=== PATIENT | female | born 1960 | race Caucasian/White ===

== ENCOUNTER 2023-06-13 11:19 | Inpatient (IN) | payer MEDICARE, SELFPAY ==
[2023-06-13] VITALS (8 sets, daily range): BP systolic 148–193; BP diastolic 68–97; PULSE 60–77; RESP 16–22; TEMP 36.1–36.8; O2SAT 97–99
--- NOTE | ~2023-06-13 | CT_ITS ---
EXAMINATION: CT brain wo con DATE: 06/13/2023 11:53 INDICATION: Cerebrovascular accident. TECHNIQUE: Computed tomography (CT) of the head was performed without intravenous contrast. The mA wa s adjusted according to patient size. Iterative reconstruction technique was employed. The dose-lengt h product was 605.33 mGy-cm. COMPARISON: None FINDINGS: There is no intracranial hemorrhage, acute infarction, or abnormal intracranial mass lesion . There are scattered areas of low attenuation in the cerebral white matter, which is within normal l imits for the patient's age. The ventricles are normal in size. The orbits are normal. There is near complete opacification of sphenoid sinus with sclerosis of the sinus lopes, consistent with chronic s inusitis. The mastoid air cells are normal. IMPRESSION: 1. Normal aging brain. I called this result to Dr. Booker. 2. Chronic sinusitis. Reviewed, dictated and finalized at location A. R MAKER DYER
--- NOTE | ~2023-06-13 | CT_ITS ---
EXAMINATION: CT brain wo con DATE: 06/13/2023 18:32 INDICATION: worsening cva symptoms . TECHNIQUE: Computed tomography (CT) of the head was performed without intravenous contrast. The mA wa s adjusted according to patient size. Iterative reconstruction technique was employed. The dose-lengt h product was 605.33 mGy-cm. COMPARISON: CT brain, CTA brain carotid same date. FINDINGS: No acute intracranial hemorrhage or extra-axial fluid collection. No hydrocephalus, mass, or herniation. No acute ischemic infarct. Unremarkable dural venous sinus attenuation. No acute osseous abnormality. Near complete opacification of the left sphenoid sinus, with air-fluid level and surrounding sclerosi s. Hypoplastic right sphenoid sinus. The remaining aerated spaces are aerated spaces are clear. Mild atrophy and chronic white matter change. Atherosclerotic intracranial calcification. IMPRESSION: No acute intracranial process. Reviewed, dictated and finalized at location K. RLY COMPANION
--- NOTE | ~2023-06-13 | XR_ITS ---
EXAMINATION: XR chest 1V portable DATE: 06/13/2023 12:32 INDICATION: Left hemiparesis. TECHNIQUE: A single frontal view of the chest was obtained. COMPARISON: None. FINDINGS: There is mild atelectasis in right lower lung zone. No pleural effusion or pneumothorax. Th e heart size is normal. There is a total right shoulder arthroplasty. There are screws in proximal le ft humerus. IMPRESSION: 1. Mild atelectasis in right lower lung zone. Reviewed, dictated and finalized at location A. WORKER PILE DRIVING
--- NOTE | ~2023-06-13 | MR_ITS ---
EXAMINATION: MR brain/brain stem wo/w con DATE: 06/14/2023 08:55 INDICATION: Left hemiparesis. TECHNIQUE: Magnetic resonance imaging (MRI) of the brain and brainstem was performed without and with 19 mL MultiHance intravenous contrast. COMPARISON: Head CT 06/13/2023 FINDINGS: There is an acute infarct in the right thalamus. There are scattered areas of nonspecific i ncreased T2-weighted signal intensity in the cerebral white matter and darryn. There is no intracranial hemorrhage or abnormal mass lesion. The ventricles are normal in size. There is mucosal thickening i n the paranasal sinuses. The orbits are normal. The mastoid air cells are normal. IMPRESSION: 1. Acute infarct in right thalamus. 2. Mild nonspecific cerebral white matter disease and pontine disease, which likely represents chroni c small vessel ischemic disease. Reviewed, dictated and finalized at location A. E JUMPER SUPERVISOR IMPRESSION: 1. Acute infarct in right thalamus. 2. Mild nonspecific cerebral white matter disease and pontine disease, which [place] represents chronic small vessel ischemic disease.
--- NOTE | ~2023-06-13 | CT_ITS ---
EXAMINATION: CTA brain carotid DATE: 06/13/2023 12:10 INDICATION: Cerebrovascular accident. Left-sided numbness. TECHNIQUE: Computed tomographic angiography (CTA) of the head was performed with 100 mL Omnipaque-350 intravenous contrast. CTA of the neck was performed with intravenous contrast. Automated exposure co ntrol and iterative reconstruction technique were employed. The dose-length product was 1128.75 mGy-c m. Maximum intensity projection and volume rendered 3D-reconstructions were created by the technologi st on a separate workstation. COMPARISON: Head CT 06/13/2023 FINDINGS: HEAD CTA: There are scattered areas of low attenuation in the cerebral white matter, which is within normal limits for the patient's age. There is no intracranial hemorrhage, acute infarction, or abnorm al intracranial mass lesion. The ventricles are normal in size. There is near complete opacification of sphenoid sinus with sclerosis of the sinus lopes, consistent with chronic sinusitis. The orbits ar e normal. The mastoid air cells are normal. The vertebral arteries are codominant. There is no signif icant stenosis of basilar artery or the posterior cerebral arteries. The posterior communicating alessandra beba are normal. There is no significant stenosis of intracranial internal carotid arteries or anteri or or middle cerebral arteries. Anterior communicating artery is normal. There is no aneurysm. NECK CTA: The lungs demonstrate mild atelectasis. There are no pathologically enlarged lymph nodes. T here is no significant stenosis of the vertebral arteries. There is no visible plaque in the proximal internal carotid arteries. There is 0% stenosis of the proximal right internal carotid artery relati ve to normal distal artery lumen diameter (NASCET criteria). There is 0% stenosis of the proximal lef t internal carotid artery relative to normal distal artery lumen diameter. There is moderate cervical spondylosis. IMPRESSION: 1. Normal aging brain. 2. No aneurysm or significant intracranial internal stenosis. 3. 0% stenosis of the proximal internal carotid arteries relative to normal distal artery lumen diame ters (NASCET criteria). Reviewed, dictated and finalized at location A. K HELPER IMPRESSION: 1. Normal aging brain. 2. No aneurysm or significant intracranial internal stenosis. 3. 0% stenosis of the proximal internal carotid arteries relative to normal dis felicia artery lumen diameters (NASCET criteria).
--- NOTE | 2023-06-13 11:44 | ECG_ITS ---
Measurements Intervals Okay Rate: 68 P: 22 [place]: 175 QRS: 14 QRSD: 72 T: 30 QT: 385 QTc: 411 Interpretive Statements SINUS RHYTHM LOW QRS VOLTAGE IN PRECORDIAL LEADS BASELINE ARTIFACT- I, II, III, AVR, AVL BORDERLINE ECG NO PREVIOUS ECG AVAILABLE FOR COMPARISON Electronically Signed On 06-13-2023 12:40:27 FIRMWARE MANAGER by Justen Jeter D.O.
[2023-06-13 11:47] LABS: Glucose Point of Care 175 mg/dl (65-105)
[2023-06-13 11:51] LABS: Basophils Absolute Auto 0.1 K/mm3 (0.0-0.1); Basophils Percent Auto 1.3 % (0.2-1.2); Eosinophils Absolute Auto 0.1 K/mm3 (0-0.3); Eosinophils Percent Auto 1.4 % (0-4.4); Hematocrit 44.1 % (37.0-47.0); Hemoglobin 14.2 g/dL (12.0-15.0); Immature Granulocyte Absolute 0.04 K/mm3 (0.00-0.031); Immature Granulocyte Percent A 0.7 % (0-0.5); Lymphocytes Absolute Auto 1.35 K/mm3 (0.9-3.2); Lymphocytes Percent Auto 24.3 % (18.3-44.2); Mean Corpuscular HGB Conc 32.2 g/dl (32-36); Mean Corpuscular Hemoglobin 29.4 pg (26-34); Mean Corpuscular Volume 91.3 fl (80-100); Mean Platelet Volume 9.6 fl (7.4-10.4); Monocytes Absolute Auto 0.4 K/mm3 (0.1-0.6); Monocytes Percent Auto 6.5 % (2.6-8.5); Neutrophils Absolute Auto 3.7 K/mm3 (1.3-6.7); Neutrophils Percent Auto 65.8 % (45.5-73.1); Platelet Count Result 166 k/mm3 (150-375); Red Blood Count 4.83 M/mm3 (4.2-5.4); Red Cell Distribution Width 13.6 % (11.5-14.5); White Blood Count 5.6 K/mm3 (4.5-10.0)
[2023-06-13 11:59] LABS: Estimated Glomerular Filt Rate > 60
[2023-06-13 12:01] LABS: INR 0.9; Prothrombin Time 12.6 Seconds (11.1-14.7)
[2023-06-13 12:02] LABS: Alanine Aminotransferase 29 U/L (6-35); Albumin Level 3.9 g/dL (3.5-5.1); Alkaline Phosphatase 67 U/L (38-126); Anion Gap 8 mmol/L (8-16); Aspartate Amino Transferase 28 U/L (14-36); Bilirubin,Total 0.6 mg/dL (0.2-1.3); Blood Urea Nitrogen 14 mg/dL (7-17); Calcium 9.1 mg/dL (8.4-10.2); Carbon Dioxide 27 mmol/L (22-30); Chloride 103 mmol/L (98-107); Estimated Glomerular Filt Rate > 60; Glucose 197 mg/dL (65-110); Partial Thromboplastin Time 30.3 SECONDS (22.3-36.8); Potassium 4.2 mmol/L (3.4-5.0); Sodium 138 mmol/L (137-145)
[2023-06-13 12:13] LABS: Troponin I < 0.012 ng/mL (0.000-0.034)
--- NOTE | 2023-06-13 13:30 | ED.NEUROSD ---
HPI - Neuro Symptoms/Deficit General Chief Complaint: Suspected CVA Stated Complaint: numbness to left side of body unknown onset Time Seen by Provider: 06/13/23 12:05 Source: patient Mode of arrival: ambulatory Limitations: no limitations History of Present Illness HPI Narrative: 63-year-old with history of diabetes. With the complaints of left-sided facial numbness, upper extremity in numbness since this morning. Patient states that she slept at 1:00 a.m. in the night woke up around 10:00 a.m. started to feel her left side of face is numb. She also complains of tingling sensation. She denies any headache, chest pain, shortness of breath Last Observed Normal: 01:00 Timing confirmed by: family member Location: left face History of same: Yes Severity: moderate Quality: tingling Relieving factors: none Exacerbating factors: none Context: gradual onset On Anticoagulants: No Associated symptoms: denies other symptoms Related Data Home Medications Medication Instructions Recorded Confirmed albuterol sulfate 90 mcg/actuation inhalation 06/13/23 aerosol inhaler atenolol 25 mg tablet mg 06/13/23 insulin aspart U-100 100 unit/mL subcut 06/13/23 (3 mL) subcutaneous pen (Novolog FlexPen U-100 Insulin aspart) insulin degludec 200 unit/mL (3 unit subcut 06/13/23 mL) subcutaneous pen (Tresiba FlexTouch U-200 insulin) lisinopril 20 mg tablet mg 06/13/23 modafinil 200 mg tablet mg 06/13/23 sertraline 100 mg tablet mg 06/13/23 vibegron 75 mg tablet (Gemtesa) mg 06/13/23 Allergies Allergy/AdvReac Type Severity Reaction Status Date / Time morphine Allergy Unknown Itching Verified 06/13/23 12:39 Latex, Natural Rubber Allergy Unknown Verified 06/13/23 12:39 metformin AdvReac Unknown Verified 06/13/23 12:39 Review of Systems Review of Systems: All systems reviewed & are unremarkable except as noted in HPI and below Constitutional: Constitutional: Reports no additional constitutional complaints Eyes: Eyes: Reports no additional eye complaints ENT: Reports system reviewed and no additional complaints, except as documented Cardiovascular: Cardiovascular: Reports no additional cardiovascular complaints Respiratory: Respiratory: Reports no additional respiratory complaints Gastrointestinal: Gastrointestinal: Reports no additional gastrointestinal complaints Musculoskeletal: Musculoskeletal: Reports no additional musculoskeletal complaints Neurologic: Reports as per HPI Psychiatric: Psychiatric: Reports no additional psychiatric complaints Endocrine: Endocrine: Reports no additional endocrine complaints Exam Narrative: GENERAL: Well-appearing, well-nourished, and in no acute distress. HEAD: Normocephalic, atraumatic. EYES: PERRLA and EOMI. ENT: Nares clear, no rhinorrhea or epistaxis. Mucous membranes moist. NECK: Supple. CHEST: Clear to auscultation. No respiratory distress. HEART: Regular rate and rhythm. No murmur heard. Normal peripheral pulses. ABDOMEN: Soft, nontender, nondistended, normal active bowel sounds. EXTREMITIES: Normal range of motion. No edema. SKIN: Warm, dry, no rash. NEURO: No focal deficits. Alert and oriented x3. PSYCH: Normal mood and affect. Course Course Emergency Course: The patient continues to have left side of her face but no obvious droop or weakness on the left side I did review her CT, CTA findings with the patient and the family agreeable with admission. I discussed with hospitalist and Dr. Recinos Vital Signs Vital signs: Vital Signs Temperature 36.8 C 06/13/23 11:33 Respiratory Rate 16 06/13/23 11:33 Blood Pressure 178/97 H 06/13/23 11:33 Pulse Oximetry 99 06/13/23 11:33 Oxygen Delivery Room Air 06/13/23 11:33 Temperature 36.1 C L 06/13/23 12:16 Pulse Rate 72 06/13/23 12:17 Respiratory Rate 22 H 06/13/23 12:17 Blood Pressure 193/78 H 06/13/23 12:17 Pulse Oximetry 98 06/13/23 12:16 Oxygen Delivery Room Air 0
[2023-06-13] MEDS: SODIUM CHLORIDE 0.9% IV 1,000 ML 75 ML IV CONT (14:40)
[2023-06-13] MEDS: ASPIRIN 81 MG CHEWABLE TABLET 324 MG PO (14:40)
--- NOTE | 2023-06-13 15:53 | PM.IMHP ---
H&P: HPI History of Present Illness Date/Time: 06/13/23 15:53 Chief Complaint: Left-sided Abnormal sensation Narrative: Patient is a 63-year-old female with a past medical history of diabetes, sleep apnea, hypertension, and hyperlipidemia who presented emergency room for left-sided abnormal sensation. Patient stated that she woke up with decreased coordination, decreased balance and left arm leg and facial numbness. Her last known well was last night at 1:00 a.m. before she went to bed. She has never had a stroke or symptoms like this. She does have uncontrolled diabetes with an A1c in the 10s. She also has a history of hypertension. She denies speech problems, problems with swallowing, acute vision issues, chest pain, shortness of breath, history of AFib, nausea or vomiting. She states that her stroke symptoms are getting worse. Review of Systems Review of Systems: All systems reviewed & are unremarkable except as noted in HPI and below PMFSH Social History Social History Smoking status: Never smoker Alcohol intake: never Substance use: never Do You Feel Safe in your Home?: Yes Lack of Transportation: No Lack of Food: Never True Current Housing: I Have Housing Concerned About Future Housing: No Difficulty Paying Gas/Electric Bills: No Difficulty Paying for Meds: No Currently Unemployed: No Education: High School Diploma/GED Difficulty w/ Childcare or Family Care: No Spiritual care concerns: No Meds Home Medications and Allergies Home Medications Medication Instructions Recorded Confirmed Type albuterol sulfate 90 mcg/actuation 90 mcg inhalation PRN PRN 06/13/23 06/13/23 History aerosol inhaler Shortness Of Breath Or Wheezing atenolol 25 mg tablet 25 mg PO DAILY 06/13/23 06/13/23 History insulin aspart U-100 100 unit/mL 10 unit subcut TIDWM 06/13/23 06/13/23 History (3 mL) subcutaneous pen (Novolog FlexPen U-100 Insulin aspart) insulin degludec 200 unit/mL (3 34 unit subcut QACBREAK 06/13/23 06/13/23 History mL) subcutaneous pen (Tresiba FlexTouch U-200 insulin) lisinopril 20 mg tablet 20 mg PO DAILY 06/13/23 06/13/23 History modafinil 200 mg tablet 200 mg PO BID 06/13/23 06/13/23 History sertraline 100 mg tablet 100 mg PO DAILY 06/13/23 06/13/23 History vibegron 75 mg tablet (Gemtesa) 75 mg PO DAILY PRN Bladder Spasms 06/13/23 06/13/23 History Allergies Allergy/AdvReac Type Severity Reaction Status Date / Time morphine Allergy Unknown Itching Verified 06/13/23 12:39 Latex, Natural Rubber Allergy Unknown Verified 06/13/23 12:39 metformin AdvReac Unknown Verified 06/13/23 12:39 Vital Signs Vital Signs - 24 hr 06/13/23 11:33 06/13/23 12:16 06/13/23 12:17 Temperature 98.2 F 97.0 F L Pulse Rate 77 72 Respiratory Rate 16 22 H 22 H Blood Pressure 178/97 H 193/78 H 193/78 H Pulse Oximetry 99 98 Oxygen Delivery Room Air 06/13/23 14:21 06/13/23 15:44 Temperature 97.3 F L Pulse Rate 64 60 Respiratory Rate 16 16 Blood Pressure 156/72 H 157/88 H Pulse Oximetry 98 98 Oxygen Delivery Exam Narrative: General:Well developed well nourished patient HEENT: Normocephalic, atraumatic, PERRL, Sclerae anicteric, oral mucosa moist. Neck: Supple Resp: CTA Heart: RRR with no murmurs Abd: Soft, nontender. No pain to palpation. Positive bowel sounds Skin: Warm and dry Extremities: No swelling, erythema or pain to palpation Neuro: Alert and Oriented x4 left-sided abnormal sensation to touch on the face, arm and leg. Abnormal [id number] with the left hand. Able to do heel to cates bilaterally. Strength 5/5 in the upper and lower extremities H&P: Results Labs Labs: Short CBC 06/13/23 Range/Units 11:46 WBC 5.6 (4.5-10.0) K/mm3 Hgb 14.2 (12.0-15.0) g/dL Hct 44.1 (37.0-47.0) % Plt Count 166 (150-375) k/mm3 [facility] 06/13/23 06/13/23 11:46 11:58 Sodium 138 Pot
--- NOTE | 2023-06-13 16:30 | ADMGEN ---
This patient, Jessica Daley, was admitted to [facility] Surg Room 305-02. Patient/family oriented to hospital policies and general routines including ID bracelet, bed and alarms, visiting hours, pain management, procedures, bathroom and other care routines, personal items, smoking policy, room service/diet, and visiting hours. Information on how to activate the Rapid Response Team has been discussed. Patient/Family are encouraged to report perceived risks to care and to ask questions if they do not understand what they are told or what they should do. denies pain, vs done, at bedside, tele on.
[2023-06-13 16:45] LABS: Glucose Point of Care 136 mg/dl (65-105)
--- NOTE | 2023-06-13 17:04 | PC.NURSE ---
called Joanie HERNANDEZ that med rec is completed
[2023-06-13 20:25] LABS: Glucose Point of Care 119 mg/dl (65-105)
--- NOTE | 2023-06-13 20:53 | PC.NURSE ---
called ODESSA Trejo about meclizine for dizziness, stated patient possible had a cerebellum infarct based on symptoms reported and meclizine will probably not going to benefit patient too much if patient continues to c/o symptoms may try, but right now NNO.
--- NOTE | 2023-06-13 22:03 | PC.NURSE ---
called MD De La Paz about patients requesting magnesium, patient states has restless legs and takes 500 mg magnesium at HS, awaiting call back.
[2023-06-14] VITALS: PULSE 67
--- NOTE | 2023-06-14 | ECHO_ITS ---
Patient Info Name: Jessica Daley Age: 63 years : 1960 Gender: Female Ht: 63 in Wt: 215 lbs BSA: 2.13 m2 HR: 64 bpm BP: 159 / 93 mmHg Heart Rhythm: Sinus Rhythm Technical Quality: Good Exam Date: 06/14/2023 2:14 PM Exam Location: Echo Lab Patient Status: Inpatient Admit Date: 06/14/2023 Staff Ordering Physician: Amy Long Silk Weaver: Edd Mayorga RDCS Attending Provider: Amy Long Referring Physician: Mercedes ANDERS; Exam Type: CA echo doppler w bubble study Study Info Indications - CVA Complete two-dimensional, color flow and Doppler transthoracic echocardiogram is performed with agitated saline. Contrast/Agitated Saline Contrast/Ag. Saline: Agitated Saline Amount: 20.00 ml Summary 1. Left ventricular chamber dimension is normal. 2. Left ventricular systolic function is normal, estimated at 65-70%. 3. There is mildly increased left ventricular wall thickness. 4. The left ventricular diastolic function is grade I diastolic dysfunction. 5. Right ventricular systolic function is normal. 6. Left atrial chamber dimension is mildly enlarged. 7. Intact interatrial septum visualized by color flow and agitated saline imaging. 8. There is mild mitral valve regurgitation. Left Ventricle Left ventricular chamber dimension is normal. Left ventricular systolic function is normal, estimated at 65-70%. There is mildly increased left ventricular wall thickness. The left ventricular diastolic function is grade I diastolic dysfunction. Right Ventricle Right ventricular chamber dimension is normal. Right ventricular systolic function is normal. Left Atria Left atrial chamber dimension is mildly enlarged. Right Atria Right atrial chamber dimension is normal. Atrial Septum Intact interatrial septum visualized by color flow and agitated saline imaging. Aortic Valve The aortic valve is probable trileaflet. There is no aortic valve stenosis. There is no aortic valve regurgitation. Pulmonic Valve The pulmonic valve is not well visualized. Mitral Valve There is mild mitral valve regurgitation. The mitral valve annulus is mildly calcified. Tricuspid Valve There is trace tricuspid valve regurgitation. Pericardium/Pleural There is no pericardial effusion. Inferior Vena Cava Inferior vena cava is not well visualized. Aorta The aortic root size at the sinus of Valsalva is normal. Left Ventricular Outflow Tract Name Value Normal LVOT 2D LVOT Diameter 2.1 cm LVOT Doppler LVOT Peak Gradient 5 mmHg LVOT Mean Gradient 3 mmHg LVOT VTI 32 cm LVOT VTI/AV VTI Ratio 0.9 LVOT Stroke Volume 110 ml LVOT CO 7.0 l/min LVOT CI 3.3 l/min/m2 Pulmonic Valve Name Value Normal RVOT Doppler
--- NOTE | 2023-06-14 00:27 | PC.NURSE ---
magnesium oxide 400 mg ordered for restless legs
[2023-06-14] MEDS: MAGNESIUM OXIDE 400 MG TABLET PO ×2 (00:35→20:36)
[2023-06-14 04:00] VITALS: BP 117/53; PULSE 60; PULSE 70; RESP 18; TEMP 36.6; O2SAT 97
--- NOTE | 2023-06-14 04:34 | PC.NURSE ---
MD De La Paz aware patient without an IV at this time.
--- NOTE | 2023-06-14 06:25 | PC.NURSE ---
MRI delayed d/t no IV access at this time. called vascular access, unable to reach at this time.
[2023-06-14 06:47] LABS: Cholesterol 266 mg/dL (0-200); HDL Direct 41 mg/dL; Triglycerides 190 mg/dL (<150)
--- NOTE | 2023-06-14 06:49 | PC.NURSE ---
Ashley from vascular access to insert IV for MRI to be done today.
[2023-06-14 06:58] LABS: LDL Cholesterol Direct 169 mg/dL
[2023-06-14 07:06] LABS: Hemoglobin A1C 7.8 % (<5.7)
[2023-06-14 07:59] LABS: Glucose Point of Care 154 mg/dl (65-105)
[2023-06-14 08:00] VITALS: BP 156/90; PULSE 64; PULSE 65; RESP 12; TEMP 36.2; O2SAT 96
[2023-06-14] MEDS: SERTRALINE HCL 50 MG TABLET 100 MG PO (09:45)
[2023-06-14] MEDS: ASPIRIN 81 MG ENTERIC TABLET PO ×2 (09:45→13:54)
[2023-06-14] MEDS: SODIUM CHLORIDE 0.9% IV 1,000 ML 75 ML IV CONT ×2 (09:45→17:19)
[2023-06-14] MEDS: INSULIN GLARGINE (*BKC) 100 UNITS/ML 15 UNITS SUB-Q (09:50)
[2023-06-14] MEDS: ATORVASTATIN 20 MG TABLET PO (09:50)
[2023-06-14 11:49] LABS: Glucose Point of Care 202 mg/dl (65-105)
[2023-06-14 12:00] VITALS: PULSE 71
--- NOTE | 2023-06-14 12:16 | PM.IMPN ---
Progress Note: A&P Assessment and Plan (1) Suspected cerebrovascular accident: Code(s): R09.89 - Other specified symptoms and signs involving the circulatory and respiratory systems Status: Acute Assessment and Plan: Confirmed acute infarct of Thalamus per MRI. Pt with high risk according to ABCD2 Starting DAPT therapy Starting High intensity statin of Atorvastatin 80 mg QHS Will maximize glycemic and hypertensive control. Lipid panel also elevated with Total cholesterol of 266, Trigs of 190, and LDL of 169. HDL is low at 41 Initiate Lovaza daily. Dietitian and plywood matcher consults are ordered. PT and OT are ordered for evaluation and treatment recommendations. Pt to have outpt follow up with Dr. Recinos upon discharge. ECHO ordered (2) T2DM (type 2 diabetes mellitus): Code(s): E11.9 - Type 2 diabetes mellitus without complications Status: Acute Assessment and Plan: A1C previously >10, but this AM is 7.8. Goal for CVA is <7.0. Pt takes 34 units of Tresiba at home, and was started on Lantus here at 15 units, and this is being increased to 25 units daily as her fasting glucose this AM was 154 and 202. Continue with pt's mealtime dosing of 10 units with meals. In addition, I am adding SSI moderate dosing for meals as well as at bedtime. Pt. will need these higher doses for discharge as well. (3) HTN (hypertension), benign: Code(s): I10 - Essential (primary) hypertension Status: Acute Assessment and Plan: BP meds of Lisinopril 20 mg and Atenolol 25 mg po daily re-ordered. Continue to monitor BP trend. Would consider discontinuing Modafanil as pt states she is often up until 2AM and cannot sleep well. (4) Depression: Code(s): F32.A - Depression, unspecified Status: Acute Assessment and Plan: Continue home medications. Time Spent With Patient Time with patient: Greater than 35 minutes Subjective Date/time seen: 06/14/23 1130 Interval history: 63-year-old female patient with significant past medical history of diabetes mellitus on long-term use of insulin, strict sleep apnea, hypertension, hyperlipidemia who presented through the emergency room last night for left-sided weakness and feelings of abnormal sensation. She did not meet time frame for tPA therapy. Initial workup performed in the emergency room demonstrated a negative CT of the head for any acute bleed, CTA of head and neck showed a normal aging brain and no stenosis of the carotid arteries. Chest x-ray showed mild atelectasis of the right lower lobe and MRI that was ordered resulted today. Patient had normal troponins. She was admitted to the hospital to finish neurological evaluation, however we do not have Neurology on today or tomorrow. MRI of the brain did return positive for an acute CVA in the thalamus. She has an elevated ABCD2 score at 7. She is considered high risk for additional CVA event. I am starting DAPT therapy and atorvastatin 80 mg in addition to optimizing glycemic and HTN control. In addition, plywood matcher, dietitian and PT/OT are all ordered for evaluation. I discussed with pt that the best way to prevent any recurrence of stroke is to control her risk factors including her co-morbidities that need optimization as well as decreasing overall risk with DAPT therapy and she will be discharged with instructions to follow up with Neurology on an outpatient basis likely tomorrow. Pt. continues to complain of having a numb sensation to the left side of the body including extremities, face and head. She has good coordination, but does have a sensation deficit. She has no CP, dyspnea, N/V/D and is able to independently feed herself. Review of Systems Review of Systems: All systems reviewed & are unremarkable except as noted in HPI and below Exam Narrative: General:Well developed, obese, well nourished patient in no acute distress at this time.
[2023-06-14] MEDS: CLOPIDOGREL BISULFATE 300 MG TABLET PO (13:49)
[2023-06-14] MEDS: OMEGA 3 POLYUNSAT FATTY ACIDS 1 GM CAP PO (13:49)
[2023-06-14] MEDS: INSULIN ASPART (*BKC) 100 UNITS/ML SUB-Q ×2 (13:53→21:20)
[2023-06-14 14:00] VITALS: BP 145/88; PULSE 76; RESP 12; TEMP 36.4; O2SAT 98
[2023-06-14] MEDS: ENOXAPARIN 40 MG/0.4 ML SYRINGE SUB-Q (15:23)
[2023-06-14 16:32] LABS: Glucose Point of Care 140 mg/dl (65-105)
[2023-06-14] MEDS: ACETAMINOPHEN 325 MG TABLET 650 MG PO (17:16)
[2023-06-14 19:56] LABS: Glucose Point of Care 201 mg/dl (65-105)
[2023-06-14 20:00] VITALS: BP 150/93; PULSE 73; RESP 16; TEMP 36.2; O2SAT 98
[2023-06-14] MEDS: ATORVASTATIN 40 MG TABLET 80 MG PO (20:35)
[2023-06-14] MEDS: INSULIN GLARGINE (*BKC) 100 UNITS/ML 25 UNITS SUB-Q (21:19)
[2023-06-15] VITALS: BP 147/89; PULSE 74; PULSE 76; RESP 16; TEMP 36.2; O2SAT 99
[2023-06-15 04:00] VITALS: PULSE 57
[2023-06-15 06:00] VITALS: BP 154/81; PULSE 64; RESP 16; TEMP 36.2; O2SAT 98
[2023-06-15 06:49] LABS: Hematocrit 41.4 % (37.0-47.0); Hemoglobin 14.2 g/dL (12.0-15.0); Mean Corpuscular HGB Conc 34.3 g/dl (32-36); Mean Corpuscular Hemoglobin 30.3 pg (26-34); Mean Corpuscular Volume 88.5 fl (80-100); Red Blood Count 4.68 M/mm3 (4.2-5.4); White Blood Count 5.3 K/mm3 (4.5-10.0)
[2023-06-15 06:50] LABS: Basophils Absolute Auto 0.1 K/mm3 (0.0-0.1); Eosinophils Absolute Auto 0.1 K/mm3 (0-0.3); Eosinophils Percent Auto 2.1 % (0-4.4); Immature Granulocyte Absolute 0.01 K/mm3 (0.00-0.031); Immature Granulocyte Percent A 0.2 % (0-0.5); Lymphocytes Absolute Auto 1.34 K/mm3 (0.9-3.2); Lymphocytes Percent Auto 25.5 % (18.3-44.2); Mean Platelet Volume 9.4 fl (7.4-10.4); Monocytes Absolute Auto 0.4 K/mm3 (0.1-0.6); Monocytes Percent Auto 7.6 % (2.6-8.5); Neutrophils Absolute Auto 3.3 K/mm3 (1.3-6.7); Neutrophils Percent Auto 63.6 % (45.5-73.1); Platelet Count Result 175 k/mm3 (150-375); Red Cell Distribution Width 13.4 % (11.5-14.5)
[2023-06-15 06:56] LABS: Anion Gap 11 mmol/L (8-16); Blood Urea Nitrogen 10 mg/dL (7-17); Carbon Dioxide 24 mmol/L (22-30); Chloride 104 mmol/L (98-107); Potassium 3.8 mmol/L (3.4-5.0); Sodium 139 mmol/L (137-145)
[2023-06-15 06:57] LABS: Alanine Aminotransferase 29 U/L (6-35); Albumin Level 4.1 g/dL (3.5-5.1); Alkaline Phosphatase 65 U/L (38-126); Aspartate Amino Transferase 32 U/L (14-36); Bilirubin,Total 0.8 mg/dL (0.2-1.3); Calcium 9.3 mg/dL (8.4-10.2); Estimated Glomerular Filt Rate > 60; Glucose 154 mg/dL (65-110); Magnesium 1.8 mg/dL (1.6-2.3)
[2023-06-15 08:00] VITALS: BP 165/79; PULSE 67; RESP 16; TEMP 36.6; O2SAT 98
[2023-06-15 08:15] LABS: Glucose Point of Care 141 mg/dl (65-105)
--- NOTE | 2023-06-15 08:36 | PM.DS ---
DS: Admitting Diagnosis Discharge Date 06/15/2023 Admitting Diagnosis Abnormal sensation to the left side DS: Discharge Diagnosis Discharge Diagnosis (1) Suspected cerebrovascular accident: Code(s): R09.89 - Other specified symptoms and signs involving the circulatory and respiratory systems Status: Acute Assessment and Plan: Confirmed acute infarct of [place] per MRI. Pt with high risk according to ABCD2 Starting DAPT therapy Starting High intensity statin of Atorvastatin 80 mg QHS Will maximize glycemic and hypertensive control. Lipid panel also elevated with Total cholesterol of 266, Trigs of 190, and LDL of 169. HDL is low at 41 Initiate Lovaza daily. Dietitian and hospital educator consults are ordered. PT and OT are ordered for evaluation and treatment recommendations. Pt to have outpt follow up with Dr. Recinos upon discharge. ECHO ordered 06/15/23: Date of discharge, pt is stable without any worsening of neurological deficit being change in sensation of the left side of the body. ABCD2 score is 7. She was evaluated by PT services and they suggested skilled PT. Pt adamant about returning home. She is overall safe for return home and have outpatient PT. She was loaded with Plavix yesterday of 300 mg and will go home with 75 mg daily, Baby asa daily, Atorvastatin 80 mg, Lovaza or fish oil, maximization of insulin with meals with SSI addition, and home BP meds resumed. Her ECHO was performed and it showed normal LVSF with EF of 65-70% and Grade 1 diastolic dysfunction. She will have outpatient follow up with Dr. Recinos. She was evaluated by dietary and discussed management of her DM for optimization with fiber in diet, Diabetic diet and medications. (2) T2DM (type 2 diabetes mellitus): Code(s): E11.9 - Type 2 diabetes mellitus without complications Status: Acute Assessment and Plan: A1C previously >10, but this AM is 7.8. Goal for CVA is <7.0. Pt takes 34 units of Tresiba at home, and was started on Lantus here at 15 units, and this is being increased to 25 units daily as her fasting glucose this AM was 154 and 202. Continue with pt's mealtime dosing of 10 units with meals. In addition, I am adding SSI moderate dosing for meals as well as at bedtime. Pt. will need these higher doses for discharge as well. 06/15/23, Date of discharge: Pt to be discharged home to continue her Tresiba increasing the dose to 40 units in AM, continue mealtime Novolog 10 units with meals and I am placing her on SSI with meals as well. Her A1C here was 7.8. For her risk factors she needs to be below 7.0, and she verbalizes this understanding. Therefore she will have these changes to further her glycemic control. I do believe she would be a good candidate for Ozempic and encourage the PCP to initiate Prior auth/peer to peer to attempt to get it covered. The reduction she has the potential of gaining from this medication would not only lower her A1C, but her overall cardiac and neurological risk as well as weight loss. (3) HTN (hypertension), benign: Code(s): I10 - Essential (primary) hypertension Status: Acute Assessment and Plan: BP meds of Lisinopril 20 mg and Atenolol 25 mg po daily re-ordered. Continue to monitor BP trend. Would consider discontinuing Modafanil as pt states she is often up until 2AM and cannot sleep well. 06/15/23, Date of discharge: Continue home medications and dosages, but would consider stopping the modafanil. She should discuss with PCP regarding this as a stimulant will increase BP and over time damage blood vessel lopes making higher risk for stroke. (4) Depression: Code(s): F32.A - Depression, unspecified Status: Acute Assessment and Plan: Continue home medications. 06/15/23, Date of discharge: Continue home medications. DS: Summary Hospital Course Reason for hospitalization: CVA type symptoms Hospital Course: This very plea
[2023-06-15] MEDS: SODIUM CHLORIDE 0.9% IV 1,000 ML 75 ML IV CONT (09:31)
[2023-06-15] MEDS: lisinopriL 20 MG TABLET PO (09:32)
[2023-06-15] MEDS: OMEGA 3 POLYUNSAT FATTY ACIDS 1 GM CAP PO (09:32)
[2023-06-15] MEDS: atenoloL 25 MG TABLET PO (09:32)
[2023-06-15] MEDS: SERTRALINE HCL 50 MG TABLET 100 MG PO (09:32)
[2023-06-15] MEDS: CLOPIDOGREL BISULFATE 75 MG TABLET PO (09:32)
[2023-06-15] MEDS: ASPIRIN 81 MG ENTERIC TABLET PO (09:32)
[2023-06-15] MEDS: ENOXAPARIN 40 MG/0.4 ML SYRINGE SUB-Q (09:33)
== END 2023-06-15 11:48 | disposition home or self-care (01) | DRG 65 ==
LOC: ANHED 13:36 → ANH3MEDSUR 15:44
PROVIDERS: Physician Assistant; Admitting Provider Family Medicine; Emergency Provider Family Medicine; PCP Family Medicine; Visit Provider Nurse Practitioner Adult Health
DX: I63.9 Cerebral infarction, unspecified (principal); G81.94 Hemiplegia, unspecified affecting left nondominant side; R29.701 NIHSS score 1; R29.702 NIHSS score 2; E78.5 Hyperlipidemia, unspecified; E11.65 Type 2 diabetes mellitus with hyperglycemia; F32.A Depression, unspecified; G47.33 Obstructive sleep apnea (adult) (pediatric); I10 Essential (primary) hypertension; Z28.21 Immunization not carried out because of patient refusal; Z79.4 Long term (current) use of insulin
CPT/HCPCS: 36415; 70450; 70496; 70498; 70553; 71045; 80053; 80061; 82948; 83036; 83735; 84484; 85025; 85610; 85730; 93005; 93306; 96360; 96361; 96375; 97110; 97112; 97116; 97162; 97165; 97530; 97535; 99285; A9270; A9577; G0378; J1650; J1815; J7030; Q9967

== ENCOUNTER 2024-05-21 18:23 | Observation (INO) | payer MEDICARE, SELFPAY ==
[2024-05-21] VITALS (11 sets, daily range): BP systolic 99–138; BP diastolic 60–72; PULSE 69–79; RESP 12–19; TEMP 36.4; O2SAT 98–100
--- NOTE | ~2024-05-21 | CT_ITS ---
EXAMINATION: CTA chest PE abdomen pel DATE: 05/21/2024 21:02 INDICATION: Shortness of breath. Hypotension. TECHNIQUE: Computed tomography angiography (CTA) of the chest was performed with 100 mL Omnipaque-350 intravenous contrast timed to evaluate the pulmonary arteries. Coronal maximum intensity projection 3D-reconstructions were created by the technologist. Computed tomography (CT) of the abdomen and pelv is was performed with intravenous contrast. Automated exposure control and iterative reconstruction t echnique were employed. The dose-length product was 2395.30 mGy-cm. COMPARISON: None. FINDINGS: CTA chest: The lungs demonstrate septal thickening and groundglass opacities, consistent with pulmona ry edema. There is mild atelectasis bilaterally. No pleural effusion. Cardiomegaly is noted. No peric ardial effusion. There is no pulmonary embolus. There is a small sliding hiatal hernia. There is mode rate thoracic spondylosis. CT abdomen and pelvis: The liver is normal. There are changes of cholecystectomy. The spleen, pancrea s, adrenal glands, and right kidney are normal. There are cysts in left kidney measuring up to 11 mm. There is a splenorenal portacaval shunt. There is diverticulosis of the colon without evidence of di verticulitis. The appendix is normal. There are no dilated loops of bowel. There are no pathologicall y enlarged lymph nodes. There is no free intraperitoneal fluid. There is mild lumbar spondylosis. IMPRESSION: 1. Mild pulmonary edema. 2. Small sliding hiatal hernia. 3. No pulmonary embolus. Reviewed, dictated and finalized at location A. [facility] SERVICES RN
--- NOTE | ~2024-05-21 | CT_ITS ---
EXAMINATION: CT brain wo con DATE: 05/21/2024 21:02 INDICATION: Dry mouth. Fatigue. Recent endoscopic sinus surgery. TECHNIQUE: Computed tomography (CT) of the head was performed without intravenous contrast. The mA wa s adjusted according to patient size. Iterative reconstruction technique was employed. The dose-lengt h product was 681.00 mGy-cm. COMPARISON: Head CT 06/13/2023 FINDINGS: There are scattered areas of low attenuation in the cerebral white matter. There is no intr acranial hemorrhage, acute infarction, or abnormal intracranial mass lesion. There is an old infarct in right thalamus. The ventricles are normal in size. There is mucosal thickening in the paranasal si nuses. There is sclerosis of the lopes of sphenoid sinus and the left posterior ethmoid sinuses, cons istent with chronic sinusitis. The orbits are normal. The mastoid air cells are normal. IMPRESSION: 1. 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 2. Mild nonspecific cerebral white matter disease, which likely represents chronic small vessel ische kai disease. 3. Chronic sinusitis. Reviewed, dictated and finalized at location A. NGS ANALYST IMPRESSION: 1. 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 2. Mild nonspecific cerebral white matter disease, which likely represents dulite machine bluer stacy small vessel ischemic disease. 3. Chronic sinusitis.
--- NOTE | 2024-05-21 18:38 | ECG_ITS ---
Test Date: 2024-05-21 18:49:36 Measurements Intervals Oscar Rate: 74 P: 24 NV: 171 QRS: 0 QRSD: 81 T: 19 QT: 390 QTc: 434 Interpretive Statements SINUS RHYTHM No previous ECG available for comparison Electronically Signed On 05-22-2024 15:52:06 [employer]DIGO MIXER by Hang Demarco M.D.
[2024-05-21 18:45] LABS: Glucose Point of Care 199 mg/dl (65-105)
[2024-05-21 19:08] LABS: Basophils Percent Auto 0.5 % (0.2-1.2); Eosinophils Absolute Auto 0.1 K/mm3 (0-0.3); Eosinophils Percent Auto 1.4 % (0-4.4); Hematocrit 41.5 % (37.0-47.0); Hemoglobin 13.7 g/dL (12.0-15.0); Immature Granulocyte Absolute 0.02 K/mm3 (0.00-0.031); Immature Granulocyte Percent A 0.3 % (0-0.5); Lymphocytes Absolute Auto 1.65 K/mm3 (0.9-3.2); Lymphocytes Percent Auto 21.5 % (18.3-44.2); Mean Corpuscular Hemoglobin 29.1 pg (26-34); Mean Corpuscular Volume 88.1 fl (80-100); Mean Platelet Volume 10.2 fl (7.4-10.4); Monocytes Absolute Auto 0.5 K/mm3 (0.1-0.6); Monocytes Percent Auto 6.9 % (2.6-8.5); Neutrophils Absolute Auto 5.3 K/mm3 (1.3-6.7); Neutrophils Percent Auto 69.4 % (45.5-73.1); Platelet Count Result 223 k/mm3 (150-375); Red Blood Count 4.71 M/mm3 (4.2-5.4); Red Cell Distribution Width 13.8 % (11.5-14.5); White Blood Count 7.7 K/mm3 (4.5-10.0)
[2024-05-21] MEDS: SODIUM CHLORIDE 0.9% IV 3,000 ML 999 ML IV CONT (19:15)
--- NOTE | 2024-05-21 19:17 | ED_ITS ---
HPI - General Adult General Chief complaint: Shortness of Breath/Dyspnea Stated complaint: SOB and dry mouth x1 hour Time Seen by Provider: 05/21/24 19:07 History of Present Illness HPI narrative: This is a 64-year-old female s/p Sinus surgery at [facility] presenting w/ generalized weakness and shortness of breath. She has not been feeling well since the surgery. She has had 1 episode of diarrhea. She has not been eating well. She is denying fevers chills, sinus congestion or drainage chest pain abdominal pain or urinary symptoms. She saw her surgeon twice this week who said she would start feeling better 6-8 weeks. Family has been monitoring her blood pressures at home and they 70/50 before she was brought to the ED. Related Data Home Medications ?Medication ?Instructions ?Recorded ?Confirmed ?Last Taken ?Type albuterol sulfate 90 mcg/actuation 90 mcg inhalation PRN PRN 06/13/23 06/13/23 06/12/23 History aerosol inhaler Shortness Of Breath Or Wheezing atenolol 25 mg tablet 25 mg PO DAILY 06/13/23 06/13/23 06/12/23 History insulin aspart U-100 100 unit/mL 10 unit subcut TIDWM 06/13/23 06/13/23 06/12/23 History (3 mL) subcutaneous pen (Novolog FlexPen U-100 Insulin aspart) lisinopril 20 mg tablet 20 mg PO DAILY 06/13/23 06/13/23 06/12/23 History magnesium oxide 500 mg PO HS 06/13/23 06/13/23 Unknown History modafinil 200 mg tablet 200 mg PO BID 06/13/23 06/13/23 06/12/23 History sertraline 100 mg tablet 100 mg PO DAILY 06/13/23 06/13/23 06/12/23 History vibegron 75 mg tablet (Gemtesa) 75 mg PO DAILY PRN Bladder Spasms 06/13/23 06/13/23 06/12/23 History Allergies Allergy/AdvReac Type Severity Reaction Status Date / Time morphine Allergy Unknown Itching Verified 05/21/24 18:26 Latex, Natural Rubber Allergy Unknown Verified 05/21/24 18:26 metformin AdvReac Unknown Verified 05/21/24 18:26 [facility] Social History Social History Smoking status: Never smoker Alcohol intake: never Substance use: never Do You Feel Safe in your Home?: Yes Lack of Transportation: No Lack of Food: Never True Current Housing: I Have Housing Concerned About Future Housing: No Difficulty Paying Gas/Electric Bills: No Difficulty Paying for Meds: YES Currently Unemployed: No Education: High School Diploma/GED Difficulty w/ Childcare or Family Care: No Spiritual care concerns: No Exam 2 Narrative: APPEARANCE: No apparent distress. A&O x3 Head: atraumatic. EYES: EOMI, NOSE: Atraumatic NECK: Trachea midline RESPIRATORY: No increased rate of breathing clear to auscultation CARDIOVASCULAR: Hypotensive, normal heart rate no peripheral edema ABDOMINAL: Non-distended soft nontender no guarding rebound no CVA tenderness MUSCULOSKELETAl: No obvious deformities NEURO: Alert. Moving 4/4 extremities SKIN:: Warm, dry. Normal color PSYCHIATRIC: Normal affect Course Vital Signs Vital signs: Vital Signs Temperature 97.6 F 05/21/24 18:30 Pulse Rate 78 05/21/24 18:30 Respiratory Rate 16 05/21/24 18:30 Pulse Oximetry 100 05/21/24 18:30 Oxygen Delivery Room Air 05/21/24 18:30 Temperature 97.6 F 05/21/24 19:51 Pulse Rate 69 05/21/24 23:27 Respiratory Rate 14 05/21/24 23:27 Blood Pressure 134/61 05/21/24 23:27 Pulse Oximetry 100 05/21/24 23:27 Oxygen Delivery Room Air 05/21/24 22:26 Medical Decision Making [facility] Narrative Medical decision making narrative: -Course: 64-year-old female presenting with fatigue and hypotension. Patient given 3 L fluid bolus with improvement in blood pressure. Sepsis workup ordered as well as CTA of chest. CT PE without evidence of PE and was read as pulmonary edema. Clinically the patient is actually dry does not have any evidence of fluid overload or history of CHF. CT of her head showed chronic sinusitis. The rest of her workup did not reveal a source of infection. Blood culture still pending. She does have an ELISA with a creatinine 1.1 from baseline of about 0.5. Patient notes shes hasn't felt well since surgery w/ decreased oral intake and had 1 episode diarrhea so she may just dehydrated. Given her hypotension and ELISA I will place her in observation overnight to ensure that her condition continues to improve. -DDX includes but is not limited to: Sepsis UTI pneumonia dehydration sinusitis anemia viral syndrome -Co-morbidities complicating care: Hypertension, diabetes, COPD -Independent interpretation of studies: white count 7.7. Hemoglobin 13.7 ABG within normal limits metabolic panel showed a acute kidney injury with creatinine 1.1 baseline of 0.5 lactic 2.1 viral swabs negative UA negative. troponin BNP negative. Independent EKG interpretation: Rhythm [sinus], Rate [74], [place] -[normal], [place] -[normal], QRS [narrow], QTC [normal], T waves -[negative for concerning inversions], ST Segments - [Negative for concerning elevations] Final interpretations: [Normal Sinus Rhythm] -Discussion of Management/Consultants:Karmen, -Interventions:3 L normal saline -Shared decision making / Disposition:observation Vital Signs Vital Signs: Vital Signs Temperature 97.6 F 05/21/24 18:30 Pulse Rate 78 05/21/24 18:30 Respiratory Rate 16 05/21/24 18:30 Pulse Oximetry 100 05/21/24 18:30 Oxygen Delivery Room Air 05/21/24 18:30 Temperature 97.6 F 05/21/24 19:51 Pulse Rate 69 05/21/24 23:27 Respiratory Rate 14 05/21/24 23:27 Blood Pressure 134/61 05/21/24 23:27 Pulse Oximetry 100 05/21/24 23:27 Oxygen Delivery Room Air 05/21/24 22:26 Lab Data 05/21/24 18:53 05/21/24 19:40 Labs: Lab Results 05/21/24 05/21/24 05/21/24 Range/Units 18:41 18:53 19:21 WBC 7.7 (4.5-10.0) K/mm3 RBC 4.71 (4.2-5.4) M/mm3 Hgb 13.7 (12.0-15.0) g/dL Hct 41.5 (37.0-47.0) % MCV 88.1 (80-100) fl MCH 29.1 (26-34) pg MCHC 33.0 (32-36) g/dl RDW 13.8 (11.5-14.5) % Plt Count 223 (150-375) k/mm3 MPV 10.2 (7.4-10.4) fl Immature Gran % (Auto) 0.3 (0-0.5) % Neut % (Auto) 69.4 (45.5-73.1) % Lymph % (Auto) 21.5 (18.3-44.2) % [place] % (Auto) 6.9 (2.6-8.5) % Eos % (Auto) 1.4 (0-4.4) % Baso % (Auto) 0.5 (0.2-1.2) % Lymph # (Auto) 1.65 (0.9-3.2) K/mm3 [place] # (Auto) 0.5 (0.1-0.6) K/mm3 Eos # (Auto) 0.1 (0-0.3) K/mm3 Baso # (Auto) 0.0 (0.0-0.1) K/mm3 Abs Immat Gran (auto) 0.02 (0.00-0.031) K/mm3 Absolute Neuts (auto) 5.3 (1.3-6.7) K/mm3 Absolute Nucleated RBC 0.000 (0.0-0.012) K/mm3 Nucleated RBC % 0.0 (0.0-0.2) % PT 13.5 (11.1-14.7) Seconds INR 1.0 APTT 23.4 (22.3-36.8) Seconds Sodium Potassium Chloride Carbon Dioxide Anion Gap BUN Creatinine Estim Creat Clear Calc Estimated GFR Glucose POC Capillary Glucose 199 H 202 H (65-105) mg/dl Lactic Acid (0.7-2.0) mmol/L Calcium Phosphorus (2.5-4.5) mg/dL Magnesium (1.6-2.3) mg/dL Total Bilirubin AST ALT Alkaline Phosphatase Troponin I (0.000-0.034) ng/mL NT-Pro-B Natriuret Pep Total Protein Albumin Lipase (23-300) U/L TSH (Reflex) (0.465-4.68) uIU/mL Urine Color (Yellow) Urine Appearance (Clear) Urine pH (5.0-9.0) Ur Specific [place] (1.001-1.035) Urine Protein (Negative) mg/dL Urine Glucose (UA) (Negative) mg/dL Urine Ketones (Negative) mg/dL Ur Blood (Man) (Negative) Urine Nitrate (Negative) Urine Bilirubin (Negative) Urine Urobilinogen (<2.0) mg/dL Leukocyte Esterase Rfl (Negative) NGHIA/UL Urine Opiates Screen (Negative) Urine Methadone Screen (Negative) Ur Barbiturates Screen (Negative) Ur Phencyclidine Scrn (Negative) Ur Amphetamine Screen (Negative) U Benzodiazepines Scrn (Negative) Urine Cocaine Screen (Negative) U Cannabinoids Screen (Negative) Ethyl Alcohol (<10) mg/dL Influenza A (RT-PCR) (Negative) Influenza B (RT-PCR) (Negative) RSV (RT-PCR) (Negative) SARS-CoV-2 RNA (RT-PCR) (Negative) 05/21/24 05/21/24 05/21/24 Range/Units 19:40 19:40 19:40 WBC (4.5-10.0) K/mm3 RBC (4.2-5.4) M/mm3 Hgb (12.0-15.0) g/dL Hct (37.0-47.0) % MCV (80-100) fl MCH (26-34) pg MCHC (32-36) g/dl RDW (11.5-14.5) % Plt Count (150-375) k/mm3 MPV (7.4-10.4) fl Immature Gran % (Auto) (0-0.5) % Neut % (Auto) (45.5-73.1) % Lymph % (Auto) (18.3-44.2) % [place] % (Auto) (2.6-8.5) % Eos % (Auto) (0-4.4) % Baso % (Auto) (0.2-1.2) % Lymph # (Auto) (0.9-3.2) K/mm3 [place] # (Auto) (0.1-0.6) K/mm3 Eos # (Auto) (0-0.3) K/mm3 Baso # (Auto) (0.0-0.1) K/mm3 Abs Immat Gran (auto) (0.00-0.031) K/mm3 Absolute Neuts (auto) (1.3-6.7) K/mm3 Absolute Nucleated RBC (0.0-0.012) K/mm3 Nucleated RBC % (0.0-0.2) % PT 14.1 (11.1-14.7) Seconds INR 1.1 APTT 29.7 (22.3-36.8) Seconds Sodium Cancelled 137 Potassium Cancelled 4.2 Chloride Cancelled Carbon Dioxide Anion Gap BUN Creatinine Estim Creat Clear Calc Estimated GFR Glucose POC Capillary Glucose (65-105) mg/dl Lactic Acid (0.7-2.0) mmol/L Calcium Phosphorus (2.5-4.5) mg/dL Magnesium (1.6-2.3) mg/dL Total Bilirubin AST ALT Alkaline Phosphatase Troponin I (0.000-0.034) ng/mL NT-Pro-B Natriuret Pep Total Protein Albumin Lipase (23-300) U/L TSH (Reflex) (0.465-4.68) uIU/mL Urine Color (Yellow) Urine Appearance (Clear) Urine pH (5.0-9.0) Ur Specific [place] (1.001-1.035) Urine Protein (Negative) mg/dL Urine Glucose (UA) (Negative) mg/dL Urine Ketones (Negative) mg/dL Ur Blood (Man) (Negative) Urine Nitrate (Negative) Urine Bilirubin (Negative) Urine Urobilinogen (<2.0) mg/dL Leukocyte Esterase Rfl (Negative) NGHIA/UL Urine Opiates Screen (Negative) Urine Methadone Screen (Negative) Ur Barbiturates Screen (Negative) Ur Phencyclidine Scrn (Negative) Ur Amphetamine Screen (Negative) U Benzodiazepines Scrn (Negative) Urine Cocaine Screen (Negative) U Cannabinoids Screen (Negative) Ethyl Alcohol (<10) mg/dL Influenza A (RT-PCR) (Negative) Influenza B (RT-PCR) (Negative) RSV (RT-PCR) (Negative) SARS-CoV-2 RNA (RT-PCR) (Negative) 05/21/24 05/21/24 05/21/24 Range/Units 19:40 19:40 19:40 WBC (4.5-10.0) K/mm3 RBC (4.2-5.4) M/mm3 Hgb (12.0-15.0) g/dL Hct (37.0-47.0) % MCV (80-100) fl MCH (26-34) pg MCHC (32-36) g/dl RDW (11.5-14.5) % Plt Count (150-375) k/mm3 MPV (7.4-10.4) fl Immature Gran % (Auto) (0-0.5) % Neut % (Auto) (45.5-73.1) % Lymph % (Auto) (18.3-44.2) % [place] % (Auto) (2.6-8.5) % Eos % (Auto) (0-4.4) % Baso % (Auto) (0.2-1.2) % Lymph # (Auto) (0.9-3.2) K/mm3 [place] # (Auto) (0.1-0.6) K/mm3 Eos # (Auto) (0-0.3) K/mm3 Baso # (Auto) (0.0-0.1) K/mm3 Abs Immat Gran (auto) (0.00-0.031) K/mm3 Absolute Neuts (auto) (1.3-6.7) K/mm3 Absolute Nucleated RBC (0.0-0.012) K/mm3 Nucleated RBC % (0.0-0.2) % PT (11.1-14.7) Seconds INR APTT (22.3-36.8) Seconds Sodium Potassium Chloride 104 Carbon Dioxide Cancelled 29 Anion Gap Cancelled 4 BUN Cancelled Creatinine Estim Creat Clear Calc Estimated GFR Glucose POC Capillary Glucose (65-105) mg/dl Lactic Acid (0.7-2.0) mmol/L Calcium Phosphorus (2.5-4.5) mg/dL Magnesium (1.6-2.3) mg/dL Total Bilirubin AST ALT Alkaline Phosphatase Troponin I (0.000-0.034) ng/mL NT-Pro-B Natriuret Pep Total Protein Albumin Lipase (23-300) U/L TSH (Reflex) (0.465-4.68) uIU/mL Urine Color (Yellow) Urine Appearance (Clear) Urine pH (5.0-9.0) Ur Specific [place] (1.001-1.035) Urine Protein (Negative) mg/dL Urine Glucose (UA) (Negative) mg/dL Urine Ketones (Negative) mg/dL Ur Blood (Man) (Negative) Urine Nitrate (Negative) Urine Bilirubin (Negative) Urine Urobilinogen (<2.0) mg/dL Leukocyte Esterase Rfl (Negative) NGHIA/UL Urine Opiates Screen (Negative) Urine Methadone Screen (Negative) Ur Barbiturates Screen (Negative) Ur Phencyclidine Scrn (Negative) Ur Amphetamine Screen (Negative) U Benzodiazepines Scrn (Negative) Urine Cocaine Screen (Negative) U Cannabinoids Screen (Negative) Ethyl Alcohol (<10) mg/dL Influenza A (RT-PCR) (Negative) Influenza B (RT-PCR) (Negative) RSV (RT-PCR) (Negative) SARS-CoV-2 RNA (RT-PCR) (Negative) 05/21/24 05/21/24 05/21/24 Range/Units 19:40 19:40 19:40 WBC (4.5-10.0) K/mm3 RBC (4.2-5.4) M/mm3 Hgb (12.0-15.0) g/dL Hct (37.0-47.0) % MCV (80-100) fl MCH (26-34) pg MCHC (32-36) g/dl RDW (11.5-14.5) % Plt Count (150-375) k/mm3 MPV (7.4-10.4) fl Immature Gran % (Auto) (0-0.5) % Neut % (Auto) (45.5-73.1) % Lymph % (Auto) (18.3-44.2) % [place] % (Auto) (2.6-8.5) % Eos % (Auto) (0-4.4) % Baso % (Auto) (0.2-1.2) % Lymph # (Auto) (0.9-3.2) K/mm3 [place] # (Auto) (0.1-0.6) K/mm3 Eos # (Auto) (0-0.3) K/mm3 Baso # (Auto) (0.0-0.1) K/mm3 Abs Immat Gran (auto) (0.00-0.031) K/mm3 Absolute Neuts (auto) (1.3-6.7) K/mm3 Absolute Nucleated RBC (0.0-0.012) K/mm3 Nucleated RBC % (0.0-0.2) % PT (11.1-14.7) Seconds INR APTT (22.3-36.8) Seconds Sodium Potassium Chloride Carbon Dioxide Anion Gap BUN 22 H D Creatinine Cancelled 1.10 H Estim Creat Clear Calc Cancelled 48 Estimated GFR Cancelled Glucose POC Capillary Glucose (65-105) mg/dl Lactic Acid (0.7-2.0) mmol/L Calcium Phosphorus (2.5-4.5) mg/dL Magnesium (1.6-2.3) mg/dL Total Bilirubin AST ALT Alkaline Phosphatase Troponin I (0.000-0.034) ng/mL NT-Pro-B Natriuret Pep Total Protein Albumin Lipase (23-300) U/L TSH (Reflex) (0.465-4.68) uIU/mL Urine Color (Yellow) Urine Appearance (Clear) Urine pH (5.0-9.0) Ur Specific [place] (1.001-1.035) Urine Protein (Negative) mg/dL Urine Glucose (UA) (Negative) mg/dL Urine Ketones (Negative) mg/dL Ur Blood (Man) (Negative) Urine Nitrate (Negative) Urine Bilirubin (Negative) Urine Urobilinogen (<2.0) mg/dL Leukocyte Esterase Rfl (Negative) NGHIA/UL Urine Opiates Screen (Negative) Urine Methadone Screen (Negative) Ur Barbiturates Screen (Negative) Ur Phencyclidine Scrn (Negative) Ur Amphetamine Screen (Negative) U Benzodiazepines Scrn (Negative) Urine Cocaine Screen (Negative) U Cannabinoids Screen (Negative) Ethyl Alcohol (<10) mg/dL Influenza A (RT-PCR) (Negative) Influenza B (RT-PCR) (Negative) RSV (RT-PCR) (Negative) SARS-CoV-2 RNA (RT-PCR) (Negative) 05/21/24 05/21/24 05/21/24 Range/Units 19:40 19:40 19:40 WBC (4.5-10.0) K/mm3 RBC (4.2-5.4) M/mm3 Hgb (12.0-15.0) g/dL Hct (37.0-47.0) % MCV (80-100) fl MCH (26-34) pg MCHC (32-36) g/dl RDW (11.5-14.5) % Plt Count (150-375) k/mm3 MPV (7.4-10.4) fl Immature Gran % (Auto) (0-0.5) % Neut % (Auto) (45.5-73.1) % Lymph % (Auto) (18.3-44.2) % [place] % (Auto) (2.6-8.5) % Eos % (Auto) (0-4.4) % Baso % (Auto) (0.2-1.2) % Lymph # (Auto) (0.9-3.2) K/mm3 [place] # (Auto) (0.1-0.6) K/mm3 Eos # (Auto) (0-0.3) K/mm3 Baso # (Auto) (0.0-0.1) K/mm3 Abs Immat Gran (auto) (0.00-0.031) K/mm3 Absolute Neuts (auto) (1.3-6.7) K/mm3 Absolute Nucleated RBC (0.0-0.012) K/mm3 Nucleated RBC % (0.0-0.2) % PT (11.1-14.7) Seconds INR APTT (22.3-36.8) Seconds Sodium Potassium Chloride Carbon Dioxide Anion Gap BUN Creatinine Estim Creat Clear Calc Estimated GFR 50 L Glucose Cancelled 186 H POC Capillary Glucose (65-105) mg/dl Lactic Acid 2.1 H (0.7-2.0) mmol/L Calcium Cancelled 9.5 Phosphorus 4.4 (2.5-4.5) mg/dL Magnesium 1.9 (1.6-2.3) mg/dL Total Bilirubin Cancelled AST ALT Alkaline Phosphatase Troponin I (0.000-0.034) ng/mL NT-Pro-B Natriuret Pep Total Protein Albumin Lipase (23-300) U/L TSH (Reflex) (0.465-4.68) uIU/mL Urine Color (Yellow) Urine Appearance (Clear) Urine pH (5.0-9.0) Ur Specific [place] (1.001-1.035) Urine Protein (Negative) mg/dL Urine Glucose (UA) (Negative) mg/dL Urine Ketones (Negative) mg/dL Ur Blood (Man) (Negative) Urine Nitrate (Negative) Urine Bilirubin (Negative) Urine Urobilinogen (<2.0) mg/dL Leukocyte Esterase Rfl (Negative) NGHIA/UL Urine Opiates Screen (Negative) Urine Methadone Screen (Negative) Ur Barbiturates Screen (Negative) Ur Phencyclidine Scrn (Negative) Ur Amphetamine Screen (Negative) U Benzodiazepines Scrn (Negative) Urine Cocaine Screen (Negative) U Cannabinoids Screen (Negative) Ethyl Alcohol (<10) mg/dL Influenza A (RT-PCR) (Negative) Influenza B (RT-PCR) (Negative) RSV (RT-PCR) (Negative) SARS-CoV-2 RNA (RT-PCR) (Negative) 05/21/24 05/21/24 05/21/24 Range/Units 19:40 19:40 19:40 WBC (4.5-10.0) K/mm3 RBC (4.2-5.4) M/mm3 Hgb (12.0-15.0) g/dL Hct (37.0-47.0) % MCV (80-100) fl MCH (26-34) pg MCHC (32-36) g/dl RDW (11.5-14.5) % Plt Count (150-375) k/mm3 MPV (7.4-10.4) fl Immature Gran % (Auto) (0-0.5) % Neut % (Auto) (45.5-73.1) % Lymph % (Auto) (18.3-44.2) % [place] % (Auto) (2.6-8.5) % Eos % (Auto) (0-4.4) % Baso % (Auto) (0.2-1.2) % Lymph # (Auto) (0.9-3.2) K/mm3 [place] # (Auto) (0.1-0.6) K/mm3 Eos # (Auto) (0-0.3) K/mm3 Baso # (Auto) (0.0-0.1) K/mm3 Abs Immat Gran (auto) (0.00-0.031) K/mm3 Absolute Neuts (auto) (1.3-6.7) K/mm3 Absolute Nucleated RBC (0.0-0.012) K/mm3 Nucleated RBC % (0.0-0.2) % PT (11.1-14.7) Seconds INR APTT (22.3-36.8) Seconds Sodium Potassium Chloride Carbon Dioxide Anion Gap BUN Creatinine Estim Creat Clear Calc Estimated GFR Glucose POC Capillary Glucose (65-105) mg/dl Lactic Acid (0.7-2.0) mmol/L Calcium Phosphorus (2.5-4.5) mg/dL Magnesium (1.6-2.3) mg/dL Total Bilirubin 0.7 AST Cancelled 42 H ALT Cancelled 43 H Alkaline Phosphatase Cancelled Troponin I (0.000-0.034) ng/mL NT-Pro-B Natriuret Pep Total Protein Albumin Lipase (23-300) U/L TSH (Reflex) (0.465-4.68) uIU/mL Urine Color (Yellow) Urine Appearance (Clear) Urine pH (5.0-9.0) Ur Specific [place] (1.001-1.035) Urine Protein (Negative) mg/dL Urine Glucose (UA) (Negative) mg/dL Urine Ketones (Negative) mg/dL Ur Blood (Man) (Negative) Urine Nitrate (Negative) Urine Bilirubin (Negative) Urine Urobilinogen (<2.0) mg/dL Leukocyte Esterase Rfl (Negative) NGHIA/UL Urine Opiates Screen (Negative) Urine Methadone Screen (Negative) Ur Barbiturates Screen (Negative) Ur Phencyclidine Scrn (Negative) Ur Amphetamine Screen (Negative) U Benzodiazepines Scrn (Negative) Urine Cocaine Screen (Negative) U Cannabinoids Screen (Negative) Ethyl Alcohol (<10) mg/dL Influenza A (RT-PCR) (Negative) Influenza B (RT-PCR) (Negative) RSV (RT-PCR) (Negative) SARS-CoV-2 RNA (RT-PCR) (Negative) 05/21/24 05/21/24 05/21/24 Range/Units 19:40 19:40 19:40 WBC (4.5-10.0) K/mm3 RBC (4.2-5.4) M/mm3 Hgb (12.0-15.0) g/dL Hct (37.0-47.0) % MCV (80-100) fl MCH (26-34) pg MCHC (32-36) g/dl RDW (11.5-14.5) % Plt Count (150-375) k/mm3 MPV (7.4-10.4) fl Immature Gran % (Auto) (0-0.5) % Neut % (Auto) (45.5-73.1) % Lymph % (Auto) (18.3-44.2) % [place] % (Auto) (2.6-8.5) % Eos % (Auto) (0-4.4) % Baso % (Auto) (0.2-1.2) % Lymph # (Auto) (0.9-3.2) K/mm3 [place] # (Auto) (0.1-0.6) K/mm3 Eos # (Auto) (0-0.3) K/mm3 Baso # (Auto) (0.0-0.1) K/mm3 Abs Immat Gran (auto) (0.00-0.031) K/mm3 Absolute Neuts (auto) (1.3-6.7) K/mm3 Absolute Nucleated RBC (0.0-0.012) K/mm3 Nucleated RBC % (0.0-0.2) % PT (11.1-14.7) Seconds INR APTT (22.3-36.8) Seconds Sodium Potassium Chloride Carbon Dioxide Anion Gap BUN Creatinine Estim Creat Clear Calc Estimated GFR Glucose POC Capillary Glucose (65-105) mg/dl Lactic Acid (0.7-2.0) mmol/L Calcium Phosphorus (2.5-4.5) mg/dL Magnesium (1.6-2.3) mg/dL Total Bilirubin AST ALT Alkaline Phosphatase 67 Troponin I < 0.012 (0.000-0.034) ng/mL NT-Pro-B Natriuret Pep Cancelled 68 Total Protein Cancelled 7.0 Albumin Cancelled Lipase (23-300) U/L TSH (Reflex) (0.465-4.68) uIU/mL Urine Color (Yellow) Urine Appearance (Clear) Urine pH (5.0-9.0) Ur Specific [place] (1.001-1.035) Urine Protein (Negative) mg/dL Urine Glucose (UA) (Negative) mg/dL Urine Ketones (Negative) mg/dL Ur Blood (Man) (Negative) Urine Nitrate (Negative) Urine Bilirubin (Negative) Urine Urobilinogen (<2.0) mg/dL Leukocyte Esterase Rfl (Negative) NGHIA/UL Urine Opiates Screen (Negative) Urine Methadone Screen (Negative) Ur Barbiturates Screen (Negative) Ur Phencyclidine Scrn (Negative) Ur Amphetamine Screen (Negative) U Benzodiazepines Scrn (Negative) Urine Cocaine Screen (Negative) U Cannabinoids Screen (Negative) Ethyl Alcohol (<10) mg/dL Influenza A (RT-PCR) (Negative) Influenza B (RT-PCR) (Negative) RSV (RT-PCR) (Negative) SARS-CoV-2 RNA (RT-PCR) (Negative) 05/21/24 05/21/24 05/21/24 Range/Units 19:40 22:43 23:33 WBC (4.5-10.0) K/mm3 RBC (4.2-5.4) M/mm3 Hgb (12.0-15.0) g/dL Hct (37.0-47.0) % MCV (80-100) fl MCH (26-34) pg MCHC (32-36) g/dl RDW (11.5-14.5) % Plt Count (150-375) k/mm3 MPV (7.4-10.4) fl Immature Gran % (Auto) (0-0.5) % Neut % (Auto) (45.5-73.1) % Lymph % (Auto) (18.3-44.2) % [place] % (Auto) (2.6-8.5) % Eos % (Auto) (0-4.4) % Baso % (Auto) (0.2-1.2) % Lymph # (Auto) (0.9-3.2) K/mm3 [place] # (Auto) (0.1-0.6) K/mm3 Eos # (Auto) (0-0.3) K/mm3 Baso # (Auto) (0.0-0.1) K/mm3 Abs Immat Gran (auto) (0.00-0.031) K/mm3 Absolute Neuts (auto) (1.3-6.7) K/mm3 Absolute Nucleated RBC (0.0-0.012) K/mm3 Nucleated RBC % (0.0-0.2) % PT (11.1-14.7) Seconds INR APTT (22.3-36.8) Seconds Sodium Potassium Chloride Carbon Dioxide Anion Gap BUN Creatinine Estim Creat Clear Calc Estimated GFR Glucose POC Capillary Glucose 109 H (65-105) mg/dl Lactic Acid (0.7-2.0) mmol/L Calcium Phosphorus (2.5-4.5) mg/dL Magnesium (1.6-2.3) mg/dL Total Bilirubin AST ALT Alkaline Phosphatase Troponin I < 0.012 (0.000-0.034) ng/mL NT-Pro-B Natriuret Pep Total Protein Albumin 3.9 Lipase 219 (23-300) U/L TSH (Reflex) 0.851 (0.465-4.68) uIU/mL Urine Color Yellow (Yellow) Urine Appearance Clear (Clear) Urine pH 6.0 (5.0-9.0) Ur Specific [place] 1.027 (1.001-1.035) Urine Protein Negative (Negative) mg/dL Urine Glucose (UA) Negative (Negative) mg/dL Urine Ketones Negative (Negative) mg/dL Ur Blood (Man) Negative (Negative) Urine Nitrate Negative (Negative) Urine Bilirubin Negative (Negative) Urine Urobilinogen 0.2 (<2.0) mg/dL Leukocyte Esterase Rfl Negative (Negative) NGHIA/UL Urine Opiates Screen Negative (Negative) Urine Methadone Screen Negative (Negative) Ur Barbiturates Screen Negative (Negative) Ur Phencyclidine Scrn Negative (Negative) Ur Amphetamine Screen Negative (Negative) U Benzodiazepines Scrn Negative (Negative) Urine Cocaine Screen Negative (Negative) U Cannabinoids Screen Negative (Negative) Ethyl Alcohol < 10 (<10) mg/dL Influenza A (RT-PCR) Negative (Negative) Influenza B (RT-PCR) Negative (Negative) RSV (RT-PCR) Negative (Negative) SARS-CoV-2 RNA (RT-PCR) Negative (Negative) 05/21/24 Range/Units 23:40 WBC (4.5-10.0) K/mm3 RBC (4.2-5.4) M/mm3 Hgb (12.0-15.0) g/dL Hct (37.0-47.0) % MCV (80-100) fl MCH (26-34) pg MCHC (32-36) g/dl RDW (11.5-14.5) % Plt Count (150-375) k/mm3 MPV (7.4-10.4) fl Immature Gran % (Auto) (0-0.5) % Neut % (Auto) (45.5-73.1) % Lymph % (Auto) (18.3-44.2) % [place] % (Auto) (2.6-8.5) % Eos % (Auto) (0-4.4) % Baso % (Auto) (0.2-1.2) % Lymph # (Auto) (0.9-3.2) K/mm3 [place] # (Auto) (0.1-0.6) K/mm3 Eos # (Auto) (0-0.3) K/mm3 Baso # (Auto) (0.0-0.1) K/mm3 Abs Immat Gran (auto) (0.00-0.031) K/mm3 Absolute Neuts (auto) (1.3-6.7) K/mm3 Absolute Nucleated RBC (0.0-0.012) K/mm3 Nucleated RBC % (0.0-0.2) % PT (11.1-14.7) Seconds INR APTT (22.3-36.8) Seconds Sodium Potassium Chloride Carbon Dioxide Anion Gap BUN Creatinine Estim Creat Clear Calc Estimated GFR Glucose POC Capillary Glucose (65-105) mg/dl Lactic Acid 0.9 (0.7-2.0) mmol/L Calcium Phosphorus (2.5-4.5) mg/dL Magnesium (1.6-2.3) mg/dL Total Bilirubin AST ALT Alkaline Phosphatase Troponin I (0.000-0.034) ng/mL NT-Pro-B Natriuret Pep Total Protein Albumin Lipase (23-300) U/L TSH (Reflex) (0.465-4.68) uIU/mL Urine Color (Yellow) Urine Appearance (Clear) Urine pH (5.0-9.0) Ur Specific [place] (1.001-1.035) Urine Protein (Negative) mg/dL Urine Glucose (UA) (Negative) mg/dL Urine Ketones (Negative) mg/dL Ur Blood (Man) (Negative) Urine Nitrate (Negative) Urine Bilirubin (Negative) Urine Urobilinogen (<2.0) mg/dL Leukocyte Esterase Rfl (Negative) NGHIA/UL Urine Opiates Screen (Negative) Urine Methadone Screen (Negative) Ur Barbiturates Screen (Negative) Ur Phencyclidine Scrn (Negative) Ur Amphetamine Screen (Negative) U Benzodiazepines Scrn (Negative) Urine Cocaine Screen (Negative) U Cannabinoids Screen (Negative) Ethyl Alcohol (<10) mg/dL Influenza A (RT-PCR) (Negative) Influenza B (RT-PCR) (Negative) RSV (RT-PCR) (Negative) SARS-CoV-2 RNA (RT-PCR) (Negative) ABG Data ABG results: 05/21/24 19:21 Puncture Site Right radial ABG pH 7.441 ABG pCO2 33.6 L ABG pO2 68.4 L ABG PO2/FiO2 Ratio 3.26 ABG HCO3 22.4 ABG O2 Saturation 94.5 L ABG O2 Content 18.0 ABG Base Excess -1.1 A-a Gradient 41.1 Oxyhemoglobin 93.5 Total Hemoglobin 13.7 O2 Delivery Device Nasal cannula O2 Liters/Min Not Reportable FiO2 21 Discharge Plan Discharge Patient Language: Danish Prescriptions: No Action lisinopril 20 mg tablet 20 mg PO DAILY sertraline 100 mg tablet 100 mg PO DAILY atenolol 25 mg tablet 25 mg PO DAILY modafinil 200 mg tablet 200 mg PO BID albuterol sulfate 90 mcg/actuation HFA aerosol inhaler 90 mcg INHALATION PRN PRN (Reason: Shortness Of Breath Or Wheezing) insulin aspart U-100 [Novolog FlexPen U-100 Insulin] 100 unit/mL (3 mL) insulin pen 10 unit SUBCUT TIDWM Gemtesa 75 mg Tablet 75 mg PO DAILY PRN (Reason: Bladder Spasms) magnesium oxide 500 mg Tablet 500 mg PO HS clopidogrel 75 mg Tablet 75 mg PO QAM Qty: 60 0RF aspirin 81 mg Tablet,Delayed Release (Dr/Ec) 81 mg PO QAM Qty: 180 0RF omega-3 acid ethyl esters 1 gram Capsule 1 g PO QAM Qty: 60 0RF insulin degludec [Tresiba FlexTouch U-100] 100 unit/mL (3 mL) insulin pen 40 unit subcut DAILY Qty: 15 0RF insulin aspart U-100 [Novolog FlexPen U-100 Insulin] 100 unit/mL (3 mL) insulin pen See Protocol subcut USEASDIRECTD Qty: 15 0RF Protocol: Insulin Corrective Moderate-Dose Condition: glucose < 70 mg/dl Dose/Route: Follow hypoglycemia orders Condition: glucose 70-200 mg/dl Dose/Route: No additional insulin Condition: glucose 201-250 mg/dl Dose/Route: 3 units sub-Q Condition: glucose 251-300 mg/dl Dose/Route: 4 units sub-Q Condition: glucose 301-350 mg/dl Dose/Route: 5 units sub-Q Condition: glucose 351-400 mg/dl Dose/Route: 6 units sub-Q Condition: glucose > 400 mg/dl Dose/Route: Call MD Protocol Text: *No Correction Dose at Bedtime* Rx Instructions: Take Sliding scale insulin in addition to the 10 units scheduled for mealtimes. atorvastatin 40 mg tablet 40 mg PO QHS Qty: 30 3RF Follow-up/Referrals: Easton,Danish Diehl MD [Primary Care Provider] -
[2024-05-21 19:24] LABS: Glucose Point of Care 202 mg/dl (65-105)
[2024-05-21 19:34] LABS: Alveolar/Arterial O2 Gradient 41.1 mmHg; Base Excess ABG -1.1 mEq/l (+/-2.0); Device NASAL CANNULA; Fractional Inspired Oxygen 21 %; HCO3 ABG 22.4 mEq/l (22.0-26.0); Modified Allen's Test Pass; Oxygen Saturation ABG 94.5 % (95.0-100.0); Oxyhemoglobin 93.5 % THb (90.0-100.0); PCO2 ABG 33.6 mmHg (35.0-45.0); PO2 ABG 68.4 mmHg (80.0-100.0); PO2 FiO2 Ratio Arterial Blood 3.26 %; Site Drawn RIGHT RADIAL; Total Hemoglobin 13.7 g/dL (12.0-18.0); pH ABG 7.441 (7.350-7.450)
[2024-05-21 19:41] LABS: Prothrombin Time 13.5 Seconds (11.1-14.7)
[2024-05-21 19:42] LABS: Partial Thromboplastin Time 23.4 Seconds (22.3-36.8)
[2024-05-21 20:04] LABS: INR 1.1; Prothrombin Time 14.1 Seconds (11.1-14.7)
[2024-05-21 20:05] LABS: Partial Thromboplastin Time 29.7 Seconds (22.3-36.8)
[2024-05-21 20:07] LABS: Ethanol < 10 mg/dL (<10)
[2024-05-21 20:08] LABS: Lactic Acid Reflex 2.1 mmol/L (0.7-2.0)
[2024-05-21 20:19] LABS: NT Pro B Type Natriuretic Pept 68 pg/mL (19.9-100); Troponin I < 0.012 ng/mL (0.000-0.034)
[2024-05-21 20:33] LABS: Alanine Aminotransferase 43 U/L (6-35); Albumin Level 3.9 g/dL (3.5-5.1); Alkaline Phosphatase 67 U/L (38-126); Anion Gap 4 mmol/L (4-12); Aspartate Amino Transferase 42 U/L (14-36); Bilirubin,Total 0.7 mg/dL (0.2-1.3); Blood Urea Nitrogen 22 mg/dL (7-17); Calcium 9.5 mg/dL (8.4-10.2); Carbon Dioxide 29 mmol/L (22-30); Chloride 104 mmol/L (98-107); Estimated CRCL calculation 48 ml/min; Estimated Glomerular Filt Rate 50; Glucose 186 mg/dL (65-110); Lipase 219 U/L (23-300); Magnesium 1.9 mg/dL (1.6-2.3); Phosphorus 4.4 mg/dL (2.5-4.5); Potassium 4.2 mmol/L (3.4-5.0); Sodium 137 mmol/L (137-145)
[2024-05-21 20:34] LABS: Influenza A QL RT-PCR Negative (Negative); Influenza B QL RT-PCR Negative (Negative); RSV RNA, RT-PCR Negative (Negative); SARS-CoV-2 RNA PCR Negative (Negative)
[2024-05-21 20:45] LABS: Thyroid Stimulating Hormone Reflex 0.851 uIU/mL (0.465-4.68)
[2024-05-21 22:50] LABS: Reflex Lactic Acid Yes or No Add Lactic
[2024-05-21 22:54] LABS: Add Urine Microscopic? NO; Appearance Urine Clear (Clear); Bilirubin Urine Negative (Negative); Blood Urine Negative (Negative); Color Urine Yellow (Yellow); Glucose Urine UA Negative (Negative); Ketones Urine Negative (Negative); Leukocyte Esterase Ur Negative LEU/UL (Negative); Nitrate Urine Negative (Negative); Protein Urine Negative (Negative); Specific Grav Ur 1.027 (1.001-1.035); Urobilinogen Urine 0.2 mg/dL (<2.0)
[2024-05-21 23:11] LABS: Amphetamine Screen Urine Negative (Negative); Barbiturate Screen Urine Negative (Negative); Benzodiazepines Screen Urine Negative (Negative); Cannabinoid Screen Urine Negative (Negative); Cocaine Screen Urine Negative (Negative); Methadone Screen Urine Negative (Negative); Opiate Screen Urine Negative (Negative); Phencyclidine Screen Urine Negative (Negative)
[2024-05-21 23:21] LABS: Troponin I < 0.012 ng/mL (0.000-0.034)
[2024-05-21 23:35] LABS: Glucose Point of Care 109 mg/dl (65-105)
[2024-05-21 23:58] LABS: Lactic Acid 0.9 mmol/L (0.7-2.0)
[2024-05-22] VITALS (20 sets, daily range): BP systolic 112–156; BP diastolic 61–85; PULSE 62–87; RESP 12–20; TEMP 36.3–36.8; O2SAT 95–100; BMI 34.3
[2024-05-22] MEDS: LACTATED RINGERS 1,000 ML 75 ML IV CONT (02:59)
--- NOTE | 2024-05-22 03:34 | ADMGEN ---
This patient, Jessica Daley, was admitted to 3 [facility] Surg Room 321-02. Patient/family oriented to hospital policies and general routines including ID bracelet, bed and alarms, visiting hours, pain management, procedures, bathroom and other care routines, personal items, smoking policy, room service/diet, and visiting hours. Information on how to activate the Rapid Response Team has been discussed. Patient/Family are encouraged to report perceived risks to care and to ask questions if they do not understand what they are told or what they should do.
[2024-05-22] MEDS: ACETAMINOPHEN 325 MG TABLET 650 MG PO (06:43)
[2024-05-22 08:55] LABS: Basophils Absolute Auto 0.1 K/mm3 (0.0-0.1); Basophils Percent Auto 0.8 % (0.2-1.2); Eosinophils Absolute Auto 0.1 K/mm3 (0-0.3); Eosinophils Percent Auto 1.6 % (0-4.4); Hematocrit 39.2 % (37.0-47.0); Hemoglobin 12.7 g/dL (12.0-15.0); Immature Granulocyte Absolute 0.01 K/mm3 (0.00-0.031); Immature Granulocyte Percent A 0.2 % (0-0.5); Lymphocytes Absolute Auto 1.73 K/mm3 (0.9-3.2); Lymphocytes Percent Auto 27.8 % (18.3-44.2); Mean Corpuscular HGB Conc 32.4 g/dl (32-36); Mean Corpuscular Hemoglobin 28.9 pg (26-34); Mean Corpuscular Volume 89.1 fl (80-100); Monocytes Absolute Auto 0.5 K/mm3 (0.1-0.6); Monocytes Percent Auto 8.5 % (2.6-8.5); Neutrophils Absolute Auto 3.8 K/mm3 (1.3-6.7); Neutrophils Percent Auto 61.1 % (45.5-73.1); Platelet Count Result 156 k/mm3 (150-375); Red Cell Distribution Width 13.8 % (11.5-14.5); White Blood Count 6.2 K/mm3 (4.5-10.0)
[2024-05-22 09:03] LABS: Alanine Aminotransferase 34 U/L (6-35); Albumin Level 3.5 g/dL (3.5-5.1); Alkaline Phosphatase 60 U/L (38-126); Anion Gap 5 mmol/L (4-12); Aspartate Amino Transferase 32 U/L (14-36); Bilirubin,Total 0.7 mg/dL (0.2-1.3); Blood Urea Nitrogen 21 mg/dL (7-17); Calcium 8.8 mg/dL (8.4-10.2); Carbon Dioxide 25 mmol/L (22-30); Chloride 110 mmol/L (98-107); Estimated CRCL calculation 63 ml/min; Estimated Glomerular Filt Rate > 60; Glucose 145 mg/dL (65-110); Potassium 4.1 mmol/L (3.4-5.0); Sodium 140 mmol/L (137-145)
--- NOTE | 2024-05-22 09:06 | P.HP_ITS ---
H&P: [facility] History of Present Illness Date/Time: 05/22/24 09:06 Chief Complaint: Not feeling well at home. Narrative: Patient is a 64 year old female that reports that she did not feel well at home. checked blood pressure and it was 70/50. Patient reports that she has been feeling disoriented the past couple of days. Patient reports having sinus surgery on 05/13/24 and having 2 days left of antibiotics. Patient stated that she has not been eating well since sinus surgery. Patient denies fever, chills, sinus congestion, chest pain, abdominal pain, or urinary symptoms. Patient reports headache that is a 3 , frequent, and aching. Patient reports nausea earlier in the morning. Patient sitting up on the side of the bed and reports that she is starting to feel better. ER labs: Creatinine 1.10, Lactic acid 2.1 improved to 0.9 after fluids, AST 42, ALT 43. WBC normal. Covid, flu, RSV negative. Patient received 3 liters of fluid in the ER. Blood cultures sent, no growth to date. EKG SR 74 QTC 434. Urine negative. Head CT showed: 1. 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 2. Mild nonspecific cerebral white matter disease, which likely represents chronic small vessel ischemic disease. 3. Chronic sinusitis. Chest CTA PE abd pelvis showed: 1. Mild pulmonary edema. 2. Small sliding hiatal hernia. 3. No pulmonary embolus. Review of Systems Review of Systems: All systems reviewed & are unremarkable except as noted in HPI and below [facility] Family History Family History (Updated 05/22/24 @ 04:01 by Cyndie Matos RN) Sibling Brain cancer Father Colon cancer Social History Social History Smoking status: Never smoker Second hand tobacco smoke exposure: No Alcohol intake: never Substance use: never Do You Feel Safe in your Home?: Yes Lack of Transportation: No Lack of Food: Never True Current Housing: I Have Housing Concerned About Future Housing: No Difficulty Paying Gas/Electric Bills: No Difficulty Paying for Meds: No Currently Unemployed: No Education: High School Diploma/GED Difficulty w/ Childcare or Family Care: No Spiritual care concerns: No Meds Home Medications and Allergies Home Medications ?Medication ?Instructions ?Recorded ?Confirmed ?Type atenolol 25 mg tablet 25 mg PO DAILY 06/13/23 05/22/24 History insulin aspart U-100 100 unit/mL 10 unit subcut TIDWM 06/13/23 05/22/24 History (3 mL) subcutaneous pen (Novolog FlexPen U-100 Insulin aspart) lisinopril 20 mg tablet 20 mg PO DAILY 06/13/23 05/22/24 History magnesium oxide 500 mg PO HS 06/13/23 05/22/24 History sertraline 100 mg tablet 100 mg PO DAILY 06/13/23 05/22/24 History vibegron 75 mg tablet (Gemtesa) 75 mg PO DAILY PRN Bladder Spasms 06/13/23 05/22/24 History aspirin 81 mg tablet,delayed 81 mg PO QAM #180 tabs 06/15/23 05/22/24 Rx release clopidogrel 75 mg tablet 75 mg PO QAM #60 tabs 06/15/23 05/22/24 Rx insulin aspart U-100 100 unit/mL See Protocol subcut USEASDIRECTD 06/15/23 05/22/24 Rx (3 mL) subcutaneous pen (Novolog #15 mL FlexPen U-100 Insulin aspart) omega-3 acid ethyl esters 1 gram 1 g PO QAM #60 caps 06/15/23 05/22/24 Rx capsule atorvastatin 40 mg tablet 40 mg PO QHS #30 tabs 01/08/24 05/22/24 Rx acetaminophen 500 mg capsule 1,000 mg PO Q6H PRN pain 05/22/24 05/22/24 History cefdinir 300 mg capsule 300 mg PO Q12H 05/22/24 05/22/24 History insulin degludec 100 unit/mL (3 30 unit subcut DAILY 05/22/24 05/22/24 History mL) subcutaneous pen (Tresiba FlexTouch U-100 insulin) omeprazole magnesium 10 mg oral 10 mg PO DAILY 05/22/24 05/22/24 History suspension,delayed release (Prilosec) sodium chloride 0.65 % nasal spray 2 spray intranasal TID PRN dry 05/22/24 05/22/24 History aerosol ([place] Saline) nasal passages tizanidine 4 mg tablet 4 mg PO QID PRN muscle spasticity 05/22/24 05/22/24 History Allergies Allergy/AdvReac Type Severity Reaction Status Date / Time morphine Allergy Unknown Itching Verified 05/21/24 18:26 Latex, Natural Rubber Allergy Unknown Verified 05/21/24 18:26 metformin AdvReac Unknown Verified 05/21/24 18:26 Vital Signs Vital Signs - 24 hr 05/21/24 18:30 05/21/24 18:58 05/21/24 19:51 Temperature 97.6 F 97.6 F Pulse Rate 78 79 71 Respiratory Rate 16 15 Blood Pressure 99/60 L Pulse Oximetry 100 100 Oxygen Delivery Room Air 05/21/24 20:20 05/21/24 22:16 05/21/24 22:26 Temperature Pulse Rate 78 69 Respiratory Rate 14 15 Blood Pressure 113/64 138/72 Pulse Oximetry 98 98 100 Oxygen Delivery Room Air 05/21/24 22:45 05/21/24 22:47 05/21/24 23:27 Temperature Pulse Rate 73 69 69 Respiratory Rate 14 19 14 Blood Pressure 134/61 134/61 Pulse Oximetry 100 Oxygen Delivery 05/21/24 23:32 05/21/24 23:45 05/22/24 00:00 Temperature Pulse Rate 70 72 73 Respiratory Rate 12 14 17 Blood Pressure 135/61 Pulse Oximetry Oxygen Delivery 05/22/24 00:15 05/22/24 00:29 05/22/24 00:30 Temperature Pulse Rate 87 85 83 Respiratory Rate 16 20 20 Blood Pressure 112/68 Pulse Oximetry 97 96 Oxygen Delivery 05/22/24 00:31 05/22/24 00:45 05/22/24 01:00 Temperature Pulse Rate 71 72 73 Respiratory Rate 20 16 19 Blood Pressure 121/65 Pulse Oximetry 97 96 95 Oxygen Delivery 05/22/24 01:15 05/22/24 01:16 05/22/24 01:30 Temperature Pulse Rate 69 67 62 Respiratory Rate 19 15 16 Blood Pressure 128/67 Pulse Oximetry 96 99 99 Oxygen Delivery 05/22/24 02:00 05/22/24 02:01 05/22/24 02:15 Temperature Pulse Rate 64 65 66 Respiratory Rate 15 16 19 Blood Pressure 141/82 H Pulse Oximetry 97 100 97 Oxygen Delivery 05/22/24 02:30 05/22/24 03:15 05/22/24 03:39 Temperature 97.4 F L Pulse Rate 64 68 65 Respiratory Rate 15 20 18 Blood Pressure 134/69 Pulse Oximetry 97 98 98 Oxygen Delivery 05/22/24 06:00 Temperature 97.6 F Pulse Rate 66 Respiratory Rate 18 Blood Pressure 135/65 Pulse Oximetry 99 Oxygen Delivery Exam Const: General: comfortable and no acute distress Eyes: Sclera: sclerae normal Pupils: Equal, round and reactive pupils present Neck: Neck: supple Resp: Effort & Inspection: normal respiratory effort Auscultation: clear to auscultation bilaterally Cardio: Rate: regular rate Rhythm: regular rhythm GI: GI Palp: Yes Soft to palpation Auscultation: normal bowel sounds Skin: General skin exam: no rashes or lesions noted Neuro: Speech: normal speech Other: A&Ox3. Extrem: General: no pedal edema Other: Varicosities Psych: Mental Status: mental status grossly normal Affect: normal affect H&P: Results Labs Labs: Short CBC 05/21/24 05/22/24 Range/Units 18:53 08:41 WBC 7.7 6.2 (4.5-10.0) K/mm3 Hgb 13.7 12.7 (12.0-15.0) g/dL Hct 41.5 39.2 (37.0-47.0) % Plt Count 223 156 (150-375) k/mm3 BMP 05/21/24 05/21/24 05/21/24 19:40 19:40 19:40 Sodium Cancelled 137 Potassium Cancelled 4.2 Chloride Cancelled Carbon Dioxide BUN Creatinine Glucose Calcium 05/21/24 05/21/24 05/21/24 19:40 19:40 19:40 Sodium Potassium Chloride 104 Carbon Dioxide Cancelled 29 BUN Cancelled 22 H D Creatinine Cancelled Glucose Calcium 05/21/24 05/21/24 05/21/24 19:40 19:40 19:40 Sodium Potassium Chloride Carbon Dioxide BUN Creatinine 1.10 H Glucose Cancelled 186 H Calcium Cancelled 9.5 05/22/24 08:41 Sodium 140 Potassium 4.1 Chloride 110 H Carbon Dioxide 25 BUN 21 H Creatinine 0.80 Glucose 145 H Calcium 8.8 Cardiac Enzymes 05/21/24 05/21/24 Range/Units 19:40 22:43 Troponin I < 0.012 < 0.012 (0.000-0.034) ng/mL Liver Function 05/21/24 05/21/24 05/21/24 Range/Units 19:40 19:40 19:40 Total Bilirubin Cancelled 0.7 AST Cancelled 42 H ALT Cancelled Alkaline Phosphatase Albumin 05/21/24 05/21/24 05/21/24 Range/Units 19:40 19:40 19:40 Total Bilirubin AST ALT 43 H Alkaline Phosphatase Cancelled 67 Albumin Cancelled 3.9 05/22/24 Range/Units 08:41 Total Bilirubin 0.7 AST 32 ALT 34 Alkaline Phosphatase 60 Albumin 3.5 Urine 05/21/24 Range/Units 22:43 Urine Color Yellow (Yellow) Urine Appearance Clear (Clear) Urine pH 6.0 (5.0-9.0) Ur Specific [place] 1.027 (1.001-1.035) Urine Protein Negative (Negative) mg/dL Urine Glucose (UA) Negative (Negative) mg/dL Assessment and Plan Assessment and plan (1) Hypotension: Code(s): I95.9 - Hypotension, unspecified Status: Acute Assessment and Plan: * BP 70/50. Patient received a 3 liter bolus. * Blood pressure now is 135/65. * Hold Lisinopril for now. (2) S/P sinus surgery: Code(s): Z98.890 - Other specified postprocedural states Status: Acute Assessment and Plan: * complete Cefdinir 300 mg PO q 12 for 2 more days. * [place] nasal spray sprays nasal 2 sprays TID PRN. (3) Dehydration: Code(s): E86.0 - Dehydration Status: Acute Assessment and Plan: * BP 70/50. Patient received a 3 liter bolus. * Appetite is starting to improve. (4) ELISA (acute kidney injury): Code(s): N17.9 - Acute kidney failure, unspecified Status: Acute Assessment and Plan: * Creatinine 1.10 on admission. * Creatinine improved to 0.80 after fluid bolus. (5) Nausea: Code(s): R11.0 - Nausea Status: Acute Assessment and Plan: * Ondansetron 4 mg ivp q 6 PRN. (6) Headache: Code(s): R51.9 - Headache, unspecified Status: Acute Assessment and Plan: * Acetaminophen 1,000 mg PO q 6 PRN. Quality VTE Prophylaxis VTE prophylaxis: mechanical ordered Hospitalist MIPS Advance Care Plan I have confirmed that the patient's Advanced Care Plan is present, code status is documented, or surrogate decision maker is listed in patient medical record.: Yes Medication Reconciliation I have utilized all available resources to obtain, update and review the patients current medications (includes all prescriptions, OTC, herbals, cannabis, and nutritional supplements).: Yes
[2024-05-22] MEDS: ASPIRIN 81 MG ENTERIC TABLET PO (10:07)
[2024-05-22] MEDS: SERTRALINE HCL 50 MG TABLET 100 MG PO (10:07)
[2024-05-22] MEDS: OMEGA 3 POLYUNSAT FATTY ACIDS 1 GM CAP PO (10:07)
[2024-05-22] MEDS: CEFDINIR 300 MG CAPSULE PO ×2 (10:07→20:07)
[2024-05-22] MEDS: CLOPIDOGREL BISULFATE 75 MG TABLET PO (10:07)
[2024-05-22] MEDS: atenoloL 25 MG TABLET PO (10:11)
[2024-05-22] MEDS: MAGNESIUM OXIDE 400 MG TABLET PO (12:07)
[2024-05-22 12:23] LABS: Glucose Point of Care 146 mg/dl (65-105)
[2024-05-22] MEDS: INSULIN ASPART (*BKC) 100 UNITS/ML 10 UNITS SUB-Q ×2 (12:26→18:22)
[2024-05-22] MEDS: PANTOPRAZOLE SOD SESQUIHYDRATE 20 MG TAB PO (13:22)
[2024-05-22 16:31] LABS: Glucose Point of Care 108 mg/dl (65-105)
[2024-05-22] MEDS: ATORVASTATIN 40 MG TABLET PO (20:07)
[2024-05-22 20:29] LABS: Glucose Point of Care 190 mg/dl (65-105)
[2024-05-23 06:00] VITALS: BP 138/77; PULSE 65; RESP 12; TEMP 36.5; O2SAT 99
[2024-05-23 07:10] LABS: Basophils Percent Auto 0.7 % (0.2-1.2); Eosinophils Absolute Auto 0.1 K/mm3 (0-0.3); Hemoglobin 12.5 g/dL (12.0-15.0); Immature Granulocyte Absolute 0.01 K/mm3 (0.00-0.031); Immature Granulocyte Percent A 0.2 % (0-0.5); Lymphocytes Absolute Auto 1.47 K/mm3 (0.9-3.2); Lymphocytes Percent Auto 26.5 % (18.3-44.2); Mean Corpuscular HGB Conc 33.8 g/dl (32-36); Mean Corpuscular Hemoglobin 29.6 pg (26-34); Mean Corpuscular Volume 87.5 fl (80-100); Mean Platelet Volume 9.8 fl (7.4-10.4); Monocytes Absolute Auto 0.4 K/mm3 (0.1-0.6); Monocytes Percent Auto 7.2 % (2.6-8.5); Neutrophils Absolute Auto 3.5 K/mm3 (1.3-6.7); Neutrophils Percent Auto 63.4 % (45.5-73.1); Platelet Count Result 147 k/mm3 (150-375); Red Blood Count 4.23 M/mm3 (4.2-5.4); Red Cell Distribution Width 13.7 % (11.5-14.5); White Blood Count 5.5 K/mm3 (4.5-10.0)
[2024-05-23 07:20] LABS: Alanine Aminotransferase 29 U/L (6-35); Albumin Level 3.5 g/dL (3.5-5.1); Alkaline Phosphatase 54 U/L (38-126); Anion Gap 3 mmol/L (4-12); Aspartate Amino Transferase 31 U/L (14-36); Bilirubin,Total 0.7 mg/dL (0.2-1.3); Blood Urea Nitrogen 13 mg/dL (7-17); Calcium 8.8 mg/dL (8.4-10.2); Carbon Dioxide 26 mmol/L (22-30); Chloride 109 mmol/L (98-107); Estimated CRCL calculation 82 ml/min; Estimated Glomerular Filt Rate > 60; Glucose 145 mg/dL (65-110); Potassium 4.1 mmol/L (3.4-5.0); Sodium 138 mmol/L (137-145)
[2024-05-23 08:16] LABS: Glucose Point of Care 178 mg/dl (65-105)
[2024-05-23 09:03] VITALS: PULSE 65
[2024-05-23] MEDS: CEFDINIR 300 MG CAPSULE PO (09:03)
[2024-05-23] MEDS: OMEGA 3 POLYUNSAT FATTY ACIDS 1 GM CAP PO (09:03)
[2024-05-23] MEDS: CLOPIDOGREL BISULFATE 75 MG TABLET PO (09:03)
[2024-05-23] MEDS: ASPIRIN 81 MG ENTERIC TABLET PO (09:03)
[2024-05-23] MEDS: PANTOPRAZOLE SOD SESQUIHYDRATE 20 MG TAB PO (09:03)
[2024-05-23] MEDS: atenoloL 25 MG TABLET PO (09:03)
[2024-05-23] MEDS: SERTRALINE HCL 50 MG TABLET 100 MG PO (09:04)
[2024-05-23] MEDS: INSULIN ASPART (*BKC) 100 UNITS/ML 10 UNITS SUB-Q ×2 (09:04→11:44)
--- NOTE | 2024-05-23 10:54 | P.DS_ITS ---
DS: Admitting Diagnosis Discharge Date 05/23/2024 Admitting Diagnosis Generalized weakness and shortness of breath. DS: Discharge Diagnosis Discharge Diagnosis (1) Hypotension: Code(s): I95.9 - Hypotension, unspecified Status: Resolved (2) Dehydration: Code(s): E86.0 - Dehydration Status: Resolved (3) ELISA (acute kidney injury): Code(s): N17.9 - Acute kidney failure, unspecified Status: Resolved (4) S/P sinus surgery: Code(s): Z98.890 - Other specified postprocedural states Status: Acute DS: Summary Hospital Course Hospital Course: Patient is a 64 year old female that reports that she did not feel well at home. checked blood pressure and it was 70/50. Patient reports that she has been feeling disoriented the past couple of days. Patient reports having sinus surgery on 05/13/24 and having 2 days left of antibiotics. Patient stated that she has not been eating well since sinus surgery. ER labs: Creatinine 1.10, Lactic acid 2.1 improved to 0.9 after fluids, AST 42, ALT 43. WBC normal. Covid, flu, RSV negative. Patient received 3 liters of fluid in the ER. Blood cultures sent, no growth to date. EKG SR 74 QTC 434. Urine negative. Head CT showed: 1. 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 2. Mild nonspecific cerebral white matter disease, which likely represents chronic small vessel ischemic disease. 3. Chronic sinusitis. Chest CTA PE abd pelvis showed: 1. Mild pulmonary edema. 2. Small sliding hiatal hernia. 3. No pulmonary embolus. Patient blood pressure to 138/77 and appetite improved after fluid bolus. Creatinine improved to 0.60. Patient started eating and developed an appetite. Strength improved. Discharge to home. Status at Discharge Functional status at discharge: independent ambulation Overall status at discharge: patient is progressing back to baseline Time Spent with Patient Time attestation: Total time spent providing and/or coordinating discharge services: Time spent: Greater than 30 minutes Exam Const: General: comfortable and no acute distress Eyes: Sclera: sclerae normal Resp: Effort & Inspection: normal respiratory effort Auscultation: clear to auscultation bilaterally Cardio: Rate: regular rate Rhythm: regular rhythm GI: GI Palp: Yes Soft to palpation Auscultation: normal bowel sounds Skin: General skin exam: no rashes or lesions noted Extrem: General: no pedal edema Psych: Mental Status: mental status grossly normal Affect: normal affect DS: Data Data Completed and Pending Labs on day of discharge: Labs from last 24 hours 05/23/24 05/23/24 05/22/24 08:02 06:51 20:17 WBC 5.5 RBC 4.23 Hgb 12.5 Hct 37.0 MCV 87.5 MCH 29.6 MCHC 33.8 RDW 13.7 Plt Count 147 L MPV 9.8 Immature Gran % (Auto) 0.2 Neut % (Auto) 63.4 Lymph % (Auto) 26.5 [place] % (Auto) 7.2 Eos % (Auto) 2.0 Baso % (Auto) 0.7 Lymph # (Auto) 1.47 [place] # (Auto) 0.4 Eos # (Auto) 0.1 Baso # (Auto) 0.0 Abs Immat Gran (auto) 0.01 Absolute Neuts (auto) 3.5 Absolute Nucleated RBC 0.000 Nucleated RBC % 0.0 Sodium 138 Potassium 4.1 Chloride 109 H Carbon Dioxide 26 Anion Gap 3 L BUN 13 D Creatinine 0.60 L Estim Creat Clear Calc 82 Estimated GFR > 60 Glucose 145 H POC Capillary Glucose 178 H 190 H Calcium 8.8 Total Bilirubin 0.7 AST 31 ALT 29 Alkaline Phosphatase 54 Total Protein 6.0 L Albumin 3.5 05/22/24 05/22/24 16:28 12:01 WBC RBC Hgb Hct MCV MCH MCHC RDW Plt Count MPV Immature Gran % (Auto) Neut % (Auto) Lymph % (Auto) [place] % (Auto) Eos % (Auto) Baso % (Auto) Lymph # (Auto) [place] # (Auto) Eos # (Auto) Baso # (Auto) Abs Immat Gran (auto) Absolute Neuts (auto) Absolute Nucleated RBC Nucleated RBC % Sodium Potassium Chloride Carbon Dioxide Anion Gap BUN Creatinine Estim Creat Clear Calc Estimated GFR Glucose POC Capillary Glucose 108 H 146 H Calcium Total Bilirubin AST ALT Alkaline Phosphatase Total Protein Albumin Preliminary micro results at discharge 05/21/24 19:40 Blood Culture - Preliminary Blood 05/21/24 19:40 Blood Culture - Preliminary Blood Discharge Plan Discharge Attending physician on discharge: Alexis Harp Discharging Clinician: Latoya Horn Anticipated Discharge Date/Time: 05/23/24 12:30 Patient Disposition: Home, Self-Care Activity: may shower and as tolerated Diet: diabetic Discharge Instructions: * Take blood pressure daily and record. Take recordings to your primary doctor appointment. * If blood pressure is less than 110/60, hold AM Lisinopril. * Stay hydrated. * Complete Cefdinir antibiotic that you have at home ordered post sinus surgery. Thank you for entrusting [facility] with your medical care! Patient Instructions: Antibiotic Form, Dehydration (DC), Hypotension (DC) Patient Language: Maltese Stand Alone Forms: General Discharge Information Follow-up/Referrals: Easton,Danish Diehl MD [Primary Care Provider] - 1 Week Discharge Medications: Continued acetaminophen 500 mg capsule 1,000 mg PO Q6H PRN (Reason: pain) cefdinir 300 mg capsule 300 mg PO Q12H Patient Comments: Pt states she still needs for 2 more days insulin degludec [Tresiba FlexTouch U-100] 100 unit/mL (3 mL) insulin pen 30 unit subcut DAILY [place] Saline 0.65 % aerosol,spray 2 spray intranasal TID PRN (Reason: dry nasal passages) tizanidine 4 mg tablet 4 mg PO QID PRN (Reason: muscle spasticity) Prilosec 10 mg susp,delayed release for recon 10 mg PO DAILY lisinopril 20 mg tablet 20 mg PO DAILY sertraline 100 mg tablet 100 mg PO DAILY atenolol 25 mg tablet 25 mg PO DAILY insulin aspart U-100 [Novolog FlexPen U-100 Insulin] 100 unit/mL (3 mL) insulin pen 10 unit SUBCUT TIDWM Gemtesa 75 mg Tablet 75 mg PO DAILY PRN (Reason: Bladder Spasms) magnesium oxide 500 mg Tablet 500 mg PO HS clopidogrel 75 mg Tablet 75 mg PO QAM Qty: 60 0RF aspirin 81 mg Tablet,Delayed Release (Dr/Ec) 81 mg PO QAM Qty: 180 0RF omega-3 acid ethyl esters 1 gram Capsule 1 g PO QAM Qty: 60 0RF insulin aspart U-100 [Novolog FlexPen U-100 Insulin] 100 unit/mL (3 mL) insulin pen See Protocol subcut USEASDIRECTD Qty: 15 0RF Protocol: Insulin Corrective Moderate-Dose Condition: glucose < 70 mg/dl Dose/Route: Follow hypoglycemia orders Condition: glucose 70-200 mg/dl Dose/Route: No additional insulin Condition: glucose 201-250 mg/dl Dose/Route: 3 units sub-Q Condition: glucose 251-300 mg/dl Dose/Route: 4 units sub-Q Condition: glucose 301-350 mg/dl Dose/Route: 5 units sub-Q Condition: glucose 351-400 mg/dl Dose/Route: 6 units sub-Q Condition: glucose > 400 mg/dl Dose/Route: Call MD Protocol Text: *No Correction Dose at Bedtime* Rx Instructions: Take Sliding scale insulin in addition to the 10 units scheduled for mealtimes. atorvastatin 40 mg tablet 40 mg PO QHS Qty: 30 3RF Date of admission: 05/22/24 00:36 Primary Care Provider: EastonDanish Admitting Provider: Yamileth Peraza Attending physician on admission: Yamileth Peraza Condition: Stable Hospitalist MIPS Heart Failure (Exclusion) Patient has history of Heart Transplant or Left Ventricular Assistive Device?: No IF YES, STOP HERE Heart Failure (Qualifier) Patient has current or prior documentation of LVEF less than or equal to 40%, or mod/servere depressed LVSF?: No IF NO, STOP HERE
[2024-05-23 11:07] VITALS: O2SAT 96
[2024-05-23 11:40] LABS: Glucose Point of Care 203 mg/dl (65-105)
[2024-05-23] MEDS: MAGNESIUM OXIDE 400 MG TABLET PO (11:44)
[2024-05-23] MEDS: INSULIN ASPART (*BKC) 100 UNITS/ML SUB-Q (11:44)
== END 2024-05-23 13:10 | disposition home or self-care (01) ==
LOC: ANHED 05-22 01:20 → ANH3MEDSUR 05-23 09:50
PROVIDERS: Emergency Medicine; Nurse Practitioner Family; Admitting Provider Internal Medicine; Emergency Provider Emergency Medicine; PCP Family Medicine; Visit Provider General Practice
DX: I95.9 Hypotension, unspecified (principal); E86.0 Dehydration; N17.9 Acute kidney failure, unspecified; Z98.890 Other specified postprocedural states; R11.0 Nausea; R51.9 Headache, unspecified; Z20.822 Contact with and (suspected) exposure to COVID-19; Z79.82 Long term (current) use of aspirin; Z79.4 Long term (current) use of insulin; Z79.899 Other long term (current) drug therapy
CPT/HCPCS: 36415; 36600; 70450; 71275; 74177; 80053; 80307; 81003; 82077; 82805; 82948; 83605; 83690; 83735; 83880; 84100; 84443; 84484; 85018; 85025; 85610; 85730; 87040; 87637; 93005; 99285; A9270; G0378; J1815; J7030; J7120; Q9967

== ENCOUNTER 2024-07-23 14:30 | Outpatient (RCR) | payer MEDICARE, SELFPAY | END 2024-08-04 09:29 | disposition home or self-care (01) | LOC: ANHDMC 14:30 | PROVIDERS: PCP Family Medicine; Visit Provider Nurse Practitioner | DX: E11.59 Type 2 diabetes mellitus with other circulatory complications (principal); E11.69 Type 2 diabetes mellitus with other specified complication; E78.5 Hyperlipidemia, unspecified; I15.2 Hypertension secondary to endocrine disorders; E66.812 Obesity, class 2; E66.01 Morbid (severe) obesity due to excess calories; Z68.39 Body mass index [BMI] 39.0-39.9, adult; Z71.89 Other specified counseling | CPT/HCPCS: G0108; G0109 ==

== ENCOUNTER 2024-10-29 14:30 | Outpatient (RCR) | payer MEDICARE, SELFPAY | END 2024-12-31 10:54 | disposition home or self-care (01) | LOC: ANHDMC 14:30 | PROVIDERS: PCP Family Medicine; Visit Provider Nurse Practitioner | DX: E11.65 Type 2 diabetes mellitus with hyperglycemia (principal); E11.59 Type 2 diabetes mellitus with other circulatory complications; E11.69 Type 2 diabetes mellitus with other specified complication; E78.5 Hyperlipidemia, unspecified; I15.2 Hypertension secondary to endocrine disorders; Z79.4 Long term (current) use of insulin; E66.812 Obesity, class 2; E66.01 Morbid (severe) obesity due to excess calories; Z68.39 Body mass index [BMI] 39.0-39.9, adult; Z71.89 Other specified counseling | CPT/HCPCS: G0109 ==

== ENCOUNTER 2025-02-19 14:06 | Outpatient (RCR) | payer MEDICARE, SELFPAY | END 2025-04-03 15:25 | disposition home or self-care (01) | LOC: ANHDMC 14:06 | PROVIDERS: PCP Family Medicine; Visit Provider Nurse Practitioner | DX: E11.59 Type 2 diabetes mellitus with other circulatory complications (principal); E11.65 Type 2 diabetes mellitus with hyperglycemia; I15.2 Hypertension secondary to endocrine disorders; E78.5 Hyperlipidemia, unspecified; E66.812 Obesity, class 2; E66.01 Morbid (severe) obesity due to excess calories; Z68.39 Body mass index [BMI] 39.0-39.9, adult; Z71.89 Other specified counseling | CPT/HCPCS: G0109 ==